=== PATIENT | female | born 1940 | race Caucasian/White ===

== ENCOUNTER 2020-11-13 17:13 | Inpatient (IN) | payer MEDICARE, MEDICAID, SELFPAY ==
--- NOTE | 2020-11-13 17:17 | ECG_ITS ---
Test Reason : STROKE Blood Pressure : / mmHG Vent. Rate : 088 BPM Atrial Rate : 094 BPM P-R Int : 000 ms QRS Dur : 090 ms QT Int : 394 ms P-R-T Axes : 000 081 011 degrees QTc Int : 476 ms Atrial fibrillation Nonspecific ST and T wave abnormality Prolonged QT Abnormal ECG When compared with ECG of 11-AUG-2015 14:17, Criteria for Septal infarct are no longer Present ST no longer depressed in Inferior leads ST no longer depressed in Lateral leads T wave inversion no longer evident in Lateral leads QT has lengthened Referred By: Paul Rabago Electronically Signed By:FIGUEROA DUARTE MD
--- NOTE | 2020-11-13 17:17 | CT_ITS ---
EXAMINATION: CT HEAD WITHOUT CONTRAST (STROKE PROTOCOL) CLINICAL INFORMATION: Stroke protocol. COMPARISON: CT head 05/31/2017 TECHNIQUE: Contiguous axial imaging was performed from the skull base to vertex without intravenous administration of contrast. This CT examination was performed using dose optimization techniques as appropriate, variously including the following: *Automated exposure control *Adjustment of mA and/or kV according to patient size (this includes techniques or standardized protocols for targeted exams where dose is matched to indication/reason for exam; i.e. extremities or head) *Use of iterative reconstruction technique DLP: 685 mGy-cm FINDINGS: There is no intracranial hemorrhage, hematoma, or extra-axial fluid collection. There is no mass effect. There is atrophy with prominence of the ventricles and the sulci and hypodensity of the periventricular white matter due to chronic small vessel ischemic disease. There are vascular calcifications of the internal carotid arteries bilaterally. The stovall-white matter differentiation appears symmetric. There is no acute infarct or mass lesion. The calvarium appears intact. There is no pneumocephalus or orbital emphysema. The visualized sinuses and middle ears and mastoid air cells show no significant mucosal thickening. There are no air-fluid levels. CT/CT head for stroke IMPRESSION: No acute intracranial pathology. This critical result was discussed with Paul Rabago 5:30 PM, 11/13/2020 It was ascertained that the content and urgency of the report was understood at the time of direct communication.
--- NOTE | 2020-11-13 17:26 | ED.NEUROSD ---
HPI - Neuro Symptoms/Deficit General Chief Complaint: Altered Mental Status Stated Complaint: stroke alert Time Seen by Provider: 11/13/20 17:17 Source: patient and EMS Mode of arrival: EMS Limitations: no limitations History of Present Illness HPI Narrative: This is a 80-year-old female presented with right facial droop started at 11:30, patient called 911 on initial 911 evaluation found that she has mild right facial droop otherwise no neurological deficit, patient also takes Coumadin for atrial fibrillation and she had elevated INR. Patient on arrival is awake, oriented, able to move 4 extremities, very mild right pronator drift otherwise no other deficit on the exam, her initial INR was 5.7. 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 Related Data Allergies Allergy/AdvReac Type Severity Reaction Status Date / Time No Known Allergies Allergy Unverified 08/08/20 17:07 [No Known Allergies*] Review of Systems Review of Systems: All other systems are reviewed and are negative Constitutional: Reports as per HPI and Reports no additional constitutional complaints Eyes: Reports as per HPI and Reports no additional eye complaints Reports system reviewed and no additional complaints, except as documented Cardiovascular: Reports as per HPI and Reports no additional cardiovascular complaints Respiratory: Reports as per HPI and Reports no additional respiratory complaints Gastrointestinal: Reports as per HPI and Reports no additional gastrointestinal complaints Genitourinary: Reports no additional female genitourinary complaints Musculoskeletal: Reports no additional musculoskeletal complaints Skin/Breast: Reports system reviewed and no additional complaints, except as docu Psychiatric: Reports no additional psychiatric complaints Endocrine: Reports no additional endocrine complaints Hematologic/Lymphatic: Reports no additional hematologic/lymphatic complaints Allergic/Immunologic: Reports no additional allergic/immunologic complaints Reports system reviewed and no additional complaints, except as documented and Reports Abnormal speech present [facility] Social History Social History Alcohol intake: never Smoking Status: Never smoker Smoked in Last 30 Days: No Use of substances other than those prescribed or required for medical reasons: No Advance Directives: No Advance Directives Information Provided: Yes Physical Exam Vital Signs: Vital Signs: Last Vital Signs Temp 98.1 F 11/13/20 19:33 Pulse 79 11/13/20 19:33 Resp 20 11/13/20 19:33 BP 145/74 H 11/13/20 19:33 Pulse Ox 99 11/13/20 19:33 Body Mass Index 25.1 Vital signs have been reviewed as normal and appeared to be correct. Blood pressure normal. Heart rate normal. Respiration rate normal. Temperature normal. Oxygen saturation normal. Appearance: Alert. Oriented X3. No acute distress. Head: Normal external exam. Normocephalic. Atraumatic. No Souza signs noted. No raccoon eyes noted Eyes: PERRLA. EOMI. Conjunctiva and sclera normal. Eyelids normal. ENT: EAC normal. TM's Normal. Pharynx normal. Uvula midline. Moist mucous membranes. No trismus noted. No drooling noted. No muffled voice noted. Neck: Normal inspection. Neck supple. FROM. No adenopathy. Thyroid Normal. No meningeal signs. No neck mass noted. CVS: Normal heart rate and rhythm. Heart sound normal. No murmurs noted. Pulses normal throughout. Respiratory: No respiratory distress. Painless inspiration. Breath sounds normal. No wheezes/rales/rhonchi noted. Chest nontender. No accessory muscle usage noted or decreased air movement noted. Abdomen: Soft and nontender. Bowel sounds normal in all 4 quadrants. No distention noted. No organomegaly noted. No visible injury noted. Back: No CVA tenderness. Full range of motion noted. Skin: Skin warm and dry. Normal skin color. Normal skin turgor. No rashes/lesions/lacerations noted. Extremities: No lower extremity edema. Extremities exhibit normal range of motion. Extremities nontender. Neuro: Oriented X 3. No motor deficit. No sensory deficit. Reflexes normal. MDM - Neuro Symptoms/Deficit MDM Narrative Medical decision making narrative: Assessment and plan. 80-year-old female presented with 6 hours of symptoms started before coming to the emergency department, right facial droop and right upper extremities weakness (that improved), patient is not candidate for tPA therapy because INR is above 5 (patient is on Coumadin for atrial fibrillation), also patient presented 6 hours after the onset of the symptoms, and the minority of the symptoms. Admit the patient for further observation and further neurological evaluation. Patient also stated that she gained about 30 lb from bilateral lower extremity swelling, chest x-ray, history of ejection fraction of 20%. We will give 1 dose of Lasix for diuresis. Lab Data Result diagrams: 11/13/20 19:31 11/13/20 19:31 Labs: Lab Results 11/13/20 11/13/20 11/13/20 Range/Units 19:20 19:31 19:31 WBC 7.9 (4.8-10.8) X10*3/uL RBC 3.96 L (4.20-5.50) X10*6/uL Hgb 10.7 L (12.0-16.0) g/dl Hct 37.3 (37-47) % MCV 94.2 (80-98) fL MCH 27.0 (27.0-33.0) pg MCHC 28.7 L (31.0-35.0) g/dl RDW 17.9 H (11.0-16.0) % Plt Count 194 (160-400) X10*3/uL MPV 10.9 (9.4-12.3) fL Immature Gran % (Auto) 0.4 (0.0-0.4) % Neut % (Auto) 81.5 H (45-73) % Lymph % (Auto) 8.2 L (20-40) % [place] % (Auto) 7.8 (2-11) % Eos % (Auto) 1.3 (0-4) % Baso % (Auto) 0.8 (0-2) % Lymph # (Auto) 0.7 L (1.2-4.9) X10*3/uL [place] # (Auto) 0.6 (0.1-1.2) X10*3/uL Eos # (Auto) 0.1 (0.0-0.4) X10*3/uL Baso # (Auto) 0.1 (0.0-0.2) X10*3/uL Abs Immat Gran (auto) 0.03 (0.00-0.03) X10*3/uL Absolute Neuts (auto) 6.4 (2.0-8.3) X10*3/uL Absolute Nucleated RBC 0.000 (0.0-0.012) X10*3/uL Nucleated RBC % (auto) 0.0 (0.0-0.2) /100WBC PT 63.2 H (10.8-13.0) SEC INR 5.2 H* (0.9-1.1) APTT 44.0 H (24.1-38.0) SEC POC Glucose 119 H (60-115) mg/dL Imaging Data Chest x-ray: Radiologist's impression: Heart enlarged. Contour suggests pericardial effusion. 2. Bilateral pleural effusions. CT scan - head: Radiologist's impression: No acute intracranial pathology. ECG Data Interpretation: Atrial fibrillation at 88 beats per minutes, normal intervals, two views flattening T-wave and T-wave inversion in V5/V6/lead II,III.a VF. NIH Stroke Scale Internal: Initial- Upon Arrival Level of Consciousness: Alert Level of Consciousness Questions: Answers both questions correctly Level of Consciousness Commands: Performs both tasks correctly Best Gaze: Normal Visual: No visual loss Facial Palsy: Minor paralyis Motor Arm (Right): No drift Motor Arm (Left): No drift Motor Leg (Right): No drift Motor Leg (Left): No drift Limb Ataxia: Absent Sensory: Normal Best Language: No aphasia Dysarthia: Normal Extinction and Inattention: No abnormality Score: 1 Discharge Plan Discharge Clinical Impression: TIA (transient ischemic attack), Congestive heart failure Patient Disposition: Admitted As Inpatient
[2020-11-13 17:27] VITALS: BP 130/84; BP 151/71; PULSE 80; PULSE 85; RESP 15; TEMP 36.6; O2SAT 98; BMI 25.1
--- NOTE | 2020-11-13 17:49 | XR_ITS ---
EXAMINATION: XR CHEST CLINICAL INFORMATION: 80-year-old female patient with transient ischemic attack. COMPARISON: Portable chest on 08/09/2015. (Pulmonary edema with pleural effusions). TECHNIQUE: AP portable erect view of the chest was obtained. The time of examination was 5:55 PM. FINDINGS: The heart is enlarged. The contour of the heart suggests the presence of a pericardial effusion. A left pectoral AICD pacemaker device is in place terminating in the right ventricle. There are bilateral pleural effusions. No overt airspace pulmonary edema is seen. XR/XR chest 1V IMPRESSION: 1. Heart enlarged. Contour suggests pericardial effusion. 2. Bilateral pleural effusions.
[2020-11-13 18:17] VITALS: BP 151/71; PULSE 85; RESP 15; TEMP 36.6; O2SAT 98
[2020-11-13 18:23] VITALS: BP 130/68; PULSE 84; RESP 20; O2SAT 96
--- NOTE | 2020-11-13 19:26 | PC.NURSE ---
REPORT RECEIVED FROM MARIA VICTORIA MICHAEL AT 19:00. ANTHONY MORLEY AT BEDSIDE OBTAINING ORDERED LABS AT THIS TIME. LABS ORDERED 2 HOURS PRIOR TO THIS RN's SHIFT. MD ANKUSH AWARE OF DELAYED DRAWING OF LABS. PATIENT HAS PATENT IV ACCESS IN LEFT AC. BARLEY STEEPER AT BEDSIDE.
[2020-11-13 19:27] LABS: Glucose, Whole Blood 119 mg/dL (60-115)
[2020-11-13 19:33] VITALS: BP 145/74; PULSE 79; RESP 20; TEMP 36.7; O2SAT 99
[2020-11-13 19:38] LABS: Basophils Absolute Auto 0.1 X10*3/uL (0.0-0.2); Basophils Percent Auto 0.8 % (0-2); Eosinophils Absolute Auto 0.1 X10*3/uL (0.0-0.4); Eosinophils Percent Auto 1.3 % (0-4); Hematocrit 37.3 % (37-47); Hemoglobin 10.7 g/dl (12.0-16.0); Imm Gran Abs Auto 0.03 X10*3/uL (0.00-0.03); Imm Gran Pct Auto 0.4 % (0.0-0.4); Lymphocytes Absolute Auto 0.7 X10*3/uL (1.2-4.9); Lymphocytes Percent Auto 8.2 % (20-40); MANUAL DIFF FLAG SCAN; Mean Corpuscular HGB Conc 28.7 g/dl (31.0-35.0); Mean Corpuscular Volume 94.2 fL (80-98); Mean Platelet Volume 10.9 fL (9.4-12.3); Monocytes Absolute Auto 0.6 X10*3/uL (0.1-1.2); Monocytes Percent Auto 7.8 % (2-11); Neutrophils Absolute Auto 6.4 X10*3/uL (2.0-8.3); Neutrophils Percent Auto 81.5 % (45-73); Platelet Count 194 X10*3/uL (160-400); Red Blood Count 3.96 X10*6/uL (4.20-5.50); Red Cell Distribution Width 17.9 % (11.0-16.0); SCAN SMEAR FLAG 1; White Blood Count 7.9 X10*3/uL (4.8-10.8)
[2020-11-13 19:52] LABS: Prothrombin Time 63.2 SEC (10.8-13.0)
[2020-11-13 20:00] LABS: INTERNATIONAL NORM RATIO 5.2 (0.9-1.1)
[2020-11-13 20:02] LABS: Stroke Lab Use COMPLETE
[2020-11-13 20:05] VITALS: BP 140/73; PULSE 81; RESP 16; O2SAT 95
[2020-11-13 20:07] LABS: Anion Gap 16 (12-20); Blood Urea Nitrogen 22 mg/dL (9-16); Calcium 8.2 mg/dL (8.4-10.2); Carbon Dioxide 22 mmol/L (22-29); Chloride 106 mmol/L (96-108); Creatinine Clr Calc Pharmacy 40.1; Estimated Glomerular Filt Rate 50; Glucose Random 109 mg/dL (60-115); Potassium 4.8 mmol/l (3.3-5.1); Sodium 139 mmol/L (135-145)
[2020-11-13 20:13] LABS: SLIDE REVIEW VERIFIED
[2020-11-13 20:16] LABS: B Type Natriuretic Peptide 1651 pg/mL (<100); Troponin-I High Sensitivity 37.6 ng/L (<3.5-17.0)
[2020-11-13] MEDS: Furosemide 40 MG/4 ML VIAL IVPUSH (20:59)
[2020-11-13 22:05] VITALS: BP 136/68; PULSE 83; RESP 18; O2SAT 96
[2020-11-14] VITALS (7 sets, daily range): BP systolic 104–166; BP diastolic 70–81; PULSE 71–95; RESP 17–22; TEMP 36.6–37; O2SAT 93–98
--- NOTE | 2020-11-14 00:04 | PC.NURSE ---
PATIENT VOIDED IN BEDPAN, REPORTED NEEDING TO HAVE BOWEL MOVEMENT BUT WAS UNABLE TO AT THIS TIME. PATIENT IS CALM/COOPERATIVE AT THIS TIME. CALL KELLER WITHIN REACH. WILL CONTINUE TO MONITOR. AWAITING BED ASSIGNMENT.
[2020-11-14 00:55] LABS: COVID-19 Test Negative (Negative)
[2020-11-14 03:35] LABS: Glucose Urine UA NEG (NEG); Leukocyte Esterase Urine NEG (NEG); Nitrite Urine NEG (NEG); PH 5.5 (5.0-8.0); Specific Gravity - Urine 1.015 (1.005-1.025); Urine Blood NEG (NEG); Urine Ketones NEG (NEG); Urine Protein NEG (NEG-TRACE)
[2020-11-14 03:38] LABS: Appearance Urine CLEAR; Color Urine STRAW; UACC Culture Trigger NO
--- NOTE | 2020-11-14 03:39 | PC.NURSE ---
urine specimen collected and sent to lab for analysis. awaiting results.
--- NOTE | 2020-11-14 05:18 | P.HPHOSP_ITS ---
History of Present Illness Date of Service: 11/13/20 Chief Complaint: Volume overload, facial droop This is an 80-year-old female with past medical history of CHF with reduced ejection fraction, AFib, CAD status post stents, renal artery stenosis, who lives initiated living situation with her blanket winder operator who is present at bedside presents to the hospital complaining of worsening facial droop. History is obtained mostly from her caregiver at bedside who is her proxy as patient is confused, she is alert and oriented to self and place but not to time and is not sure what happened that brought him to hospital. According to the blanket winder operator patient was seen at [facility] about 3 and half weeks ago because of right-sided facial droop. 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 Medical records obtained from [facility] show that patient underwent CT of the head, CT angiogram, and was found to have occlusion as above. With no acute stroke. Her blanket winder operator reports that even after discharge she continued to have right- sided facial droop. Her blanket winder operator reports that since discharge patient has been gaining about 30 lb, having lower extremity edema, and becoming more dyspneic on minimal exertion. She also noted that she give her furosemide this morning with very minimal urine production all day which is abnormal for her. Patient also was noted to have a worsening right-sided facial droop around 4:00 p.m. by the blanket winder operator and her daughter and therefore EMS was called. Patient is on 20 mg of Lasix daily and according to the blanket winder operator has been compliant. Patient has not been complaining of any chest pain, has been sleeping in a hospital bed that is almost required to 45? chronically, but has not had any PND. She has not had any fever or chills which the blanket winder operator checks twice day. She has not had any urinary symptoms, no diarrhea or constipation. No nausea or vomiting. No urinary symptoms. On arrival to the ED patient hemodynamically stable with no significant abnormal vitals Labs are significant for, hemoglobin of 10.7, PT of 63, INR 5.2, PTT of 44, sodium of 139, potassium 4.8, high sensitivity troponin of 37.6 Negative UA, EKG showing AFib with nonspecific ST T wave abnormality Chest x-ray shows Pericardial effusion as well as bilateral pleural effusion Past medical history: CAD, CHF, renal artery stenosis, AFib on Coumadin Past surgical history: Cholecystectomy, stent Family history: Heart disease Social history: Comes from home, lives initiated living situation with a blanket winder operator, does not smoke drink alcohol or use illicit drugs Review of Systems Review of Systems: Yes all other systems are reviewed and are negative [facility] Medical History (Updated 11/14/20 @ 05:33 by Myah Hernandez MD) Atrial fibrillation CAD (coronary artery disease) CVA (cerebral vascular accident) Social History Alcohol intake: never Smoking Status: Never smoker Smoked in Last 30 Days: No Use of substances other than those prescribed or required for medical reasons: No Advance Directives: No Advance Directives Information Provided: Yes Meds Allergies Allergy/AdvReac Type Severity Reaction Status Date / Time No Known Allergies Allergy Unverified 08/08/20 17:07 [No Known Allergies*] Home Medications Medication Instructions Recorded Confirmed Type amiodarone 50 mg PO DAILY 11/13/20 11/13/20 History atorvastatin 40 mg PO BEDTIME 11/13/20 11/13/20 History digoxin 62.5 mcg PO TUTHSA@0900 11/13/20 11/13/20 History furosemide 20 mg PO DAILY 11/13/20 11/13/20 History melatonin 3 mg PO BEDTIME 11/13/20 11/13/20 History metoprolol succinate 25 mg PO DAILY 11/13/20 11/13/20 History mirtazapine 7.5 mg PO BEDTIME 11/13/20 11/13/20 History jhzrtmjo-lmu-sfzx-FA-lutein 1 tab PO DAILY 11/13/20 11/13/20 History [Centrum Silver Women] quetiapine 25 mg PO DAILY 11/13/20 11/13/20 History sertraline 50 mg PO DAILY 11/13/20 11/13/20 History trazodone 100 mg PO BEDTIME 11/13/20 11/13/20 History warfarin 1 mg PO MOTUWETHFRSA@1800 11/13/20 11/13/20 History warfarin 2 mg PO HAGER@1800 11/13/20 11/13/20 History Physical Exam Vital Signs and Narrative: Vital Signs: Last Vital Signs Temp 98.1 F 11/13/20 19:33 Pulse 88 11/14/20 02:06 Resp 17 11/14/20 02:06 BP 145/80 H 11/14/20 02:06 Pulse Ox 97 11/14/20 02:06 Body Mass Index 25.1 Const: Other: Cardia anti to self and place but not to time, appears in no distress General: cooperative and no acute distress Eyes: General: appearance normal, both eyes and all related structures Pupils: Equal, round and reactive pupils present Resp: Effort & Inspection: normal respiratory effort and able to speak in complete sentences Auscultation: clear to auscultation bilaterally Cardio: Other: Irregular rhythm, has 3+ pedal edema bilaterally Rate: regular rate GI: Palpation (GI): Soft to palpation Auscultation: normal bowel sounds Skin: General skin exam: no rashes or lesions noted Neuro: Other: Has right facial droop, no other neurological deficits including strength 5/5, no pronator drift, sensation intact Cranial nerves: Yes Equal, round and reactive pupils present Cognition (Neuro): normal cognition Extrem: General: Yes normal to inspection Results Labs CBC and Chem 7: 11/13/20 19:31 11/13/20 19:31 Labs: Laboratory Results - last 24 hr 11/13/20 11/13/20 11/13/20 19:20 19:31 19:31 MCV 94.2 MCH 27.0 MCHC 28.7 L RDW 17.9 H Plt Count 194 MPV 10.9 Immature Gran % (Auto) 0.4 Neut % (Auto) 81.5 H Lymph % (Auto) 8.2 L [place] % (Auto) 7.8 Eos % (Auto) 1.3 Baso % (Auto) 0.8 Lymph # (Auto) 0.7 L [place] # (Auto) 0.6 Eos # (Auto) 0.1 Baso # (Auto) 0.1 Abs Immat Gran (auto) 0.03 Absolute Neuts (auto) 6.4 Absolute Nucleated RBC 0.000 Nucleated RBC % (auto) 0.0 Smear Tech's Comments VERIFIED PT 63.2 H INR 5.2 H* APTT 44.0 H Anion Gap Estim Creat Clear Calc Estimated GFR POC Glucose 119 H Random Glucose Calcium Total Creatine Kinase Troponin I High Sens B-Natriuretic Peptide Urine Color Urine Appearance Urine pH Ur Specific [place] Urine Protein Urine Glucose (UA) Urine Ketones Urine Blood Urine Nitrite Ur Leukocyte Esterase COVID-19 ([facility]ILA) COVID-19 Clin Com 11/13/20 11/13/20 11/14/20 19:31 19:31 00:32 MCV MCH MCHC RDW Plt Count MPV Immature Gran % (Auto) Neut % (Auto) Lymph % (Auto) [place] % (Auto) Eos % (Auto) Baso % (Auto) Lymph # (Auto) [place] # (Auto) Eos # (Auto) Baso # (Auto) Abs Immat Gran (auto) Absolute Neuts (auto) Absolute Nucleated RBC Nucleated RBC % (auto) Smear Tech's Comments PT INR APTT Anion Gap 16 Estim Creat Clear Calc 40.1 Estimated GFR 50 POC Glucose Random Glucose 109 Calcium 8.2 L Total Creatine Kinase 55 Troponin I High Sens 37.6 H B-Natriuretic Peptide 1651 H Urine Color Urine Appearance Urine pH Ur Specific [place] Urine Protein Urine Glucose (UA) Urine Ketones Urine Blood Urine Nitrite Ur Leukocyte Esterase COVID-19 (SHILA) Negative COVID-19 Clin Com See Note 11/14/20 03:28 MCV MCH MCHC RDW Plt Count MPV Immature Gran % (Auto) Neut % (Auto) Lymph % (Auto) [place] % (Auto) Eos % (Auto) Baso % (Auto) Lymph # (Auto) [place] # (Auto) Eos # (Auto) Baso # (Auto) Abs Immat Gran (auto) Absolute Neuts (auto) Absolute Nucleated RBC Nucleated RBC % (auto) Smear Tech's Comments PT INR APTT Anion Gap Estim Creat Clear Calc Estimated GFR POC Glucose Random Glucose Calcium Total Creatine Kinase Troponin I High Sens B-Natriuretic Peptide Urine Color STRAW Urine Appearance CLEAR Urine pH 5.5 Ur Specific [place] 1.015 Urine Protein NEG Urine Glucose (UA) NEG Urine Ketones NEG Urine Blood NEG Urine Nitrite NEG Ur Leukocyte Esterase NEG COVID-19 (SHILA) COVID-19 Clin Com Imaging Radiologist's Impressions: Impressions Head CT 11/13/20 17:17 IMPRESSION: No acute intracranial pathology. This critical result was discussed with Paul Rabago 5:30 PM, 11/13/2020 It was ascertained that the content and urgency of the report was understood at the time of direct communication. Chest X-Ray 11/13/20 17:49 IMPRESSION: 1. Heart enlarged. Contour suggests pericardial effusion. 2. Bilateral pleural effusions. Assessment and Plan (1) CHF exacerbation: Status: Acute (2) CVA (cerebral vascular accident): Status: Acute (3) Atrial fibrillation: Status: Acute (4) CAD (coronary artery disease): Status: Acute (5) Supratherapeutic INR: Status: Acute (6) Pericardial effusion: Status: Acute This is a an 80-year-old female with past medical history of CHF, AFib on Coumadin, recent CVA who presents to the hospital with complaints of worsening facial droop as well as volume overload. # CVA - neurological exam shows a right-sided facial droop that was present 3 weeks ago per her blanket winder operator the worsening of the strip is unclear - CT of the head is negative, CT angiogram done at [facility] 3 weeks ago shows internal carotid artery stenosis of 75% on the left and 55% on the right Plan: - atorvastatin 80 mg, as patient is supratherapeutic will hold off starting aspirin - neurology consult - echocardiogram - neurology consulted will hold off consulting vascular surgery as well as getting an MRI based on the recommendation # CHF exacerbation - has dyspnea, lower extremity edema, elevated BNP - on furosemide 20 mg at home and reports compliance - chest x-ray positive for pleural effusion Plan: - will start on Lasix 40 IV b.i.d. - strict I&O, low-sodium diet, daily weight - echocardiogram - consult cardiology - continue metoprolol # carotid artery stenosis - per CT angiogram done at [facility] records are on file - will hold off consulting vascular surgery, awaiting Neurology evaluation and recommendation - atorvastatin 80 mg daily # supratherapeutic INR - on Coumadin daily for history of AFib - no bleed at this time - will hold off Coumadin - resume was PT INR therapeutic, - PT INR daily # pericardial effusion on chest x-ray - will obtain echocardiogram - cardiology on consult - no hypoxia at this time and no hypotension # AFib - continue amiodarone, digoxin, - hold Coumadin at this time as patient has supratherapeutic INR DVT prophylaxis: Coumadin
--- NOTE | 2020-11-14 05:47 | PC.NURSE ---
NEW IV ACCESS ESTABLISHED IN RIGHT HAND. 22G IV ACCESS INSERTED. PREVIOUS IV ACCESS REMOVED ACCIDENTALLY BY PATIENT. REPEAT TROPONIN LEVEL DRAWN AND SENT TO LAB FOR ANALYSIS. AWAITING RESULTS, AND CONTINUE TO AWAIT ADMISSION BED ASSIGNMENT. PATIENT DENIES COMPLAINTS AT THIS TIME, WILL CONTINUE TO MONITOR.
[2020-11-14 06:35] LABS: Troponin-I High Sensitivity 46.8 ng/L (<3.5-17.0)
--- NOTE | 2020-11-14 08:02 | PC.NURSE ---
Pt offers no complaints at this time. Currently eating breakfast tray in room. Respirations even/unlabored bilaterally. Awaiting bed assignment for admission.
--- NOTE | 2020-11-14 08:12 | CA_ITS ---
Transthoracic Echocardiogram Patient (Last, First, Middle): Karie Messina, Gender: Female Date of : 1940 Age: 80 Procedure Date: 11/14/2020 Procedure Type: Transthoracic Echocardiogram Location: [facility] Height: 165.1 cm Weight: 68.49 kg BSA: 1.76 m2 Heart Rate: bpm BP: 138 / 81 mmHg Rod Welder: PATRICIA Hester MD: Myah Hernandez MD Production Packager: Thomas Evans MD Symptoms: pericardial effusion? CHF exacerbation Study Quality: Fair ECG Rhythm: Atrial Fibrillation Conclusions: - 1. Severe LV systolic dysfunction with restrictive filling pattern 2. Moderate biatrial enlargement 3. Moderately enlarged RV with reduced systolic function 4. Mild aortic stenosis 5. Severely elevated right ventricular systolic pressure and severely elevated right atrial pressures 6. Trivial pericardial effusion Findings Left Ventricle Mildly increased left ventricular cavity size. There is normal left ventricular wall thickness. The left ventricular systolic function is severely decreased. The visually estimated ejection fraction is between 25 30%. There is evidence of regional wall motion abnormalities. Spectral Doppler is indicative of a restrictive filling pattern. Wall Motion Rest Echo Findings The inferoseptal wall, inferior wall, inferolateral wall, and apical septum segment are akinetic. All other scored wall segments showed normal motion. Right Ventricle Moderately increased right ventricular cavity size. There is mildly decreased right ventricular systolic function. There is an ICD wire seen in the right ventricle. Atria The left atrium is moderately dilated. There is no evidence of interatrial shunt. The right atrium is moderately dilated. Aortic Valve There is moderate calcification of the aortic valve. There is moderate thickening of the aortic valve. There is mild aortic valve stenosis. There is no aortic valve regurgitation. Mitral Valve There is mild anterior and posterior mitral leaflet thickening. The anterior mitral leaflet has restricted mobility and the posterior mitral leaflet has restricted mobility. There is mild mitral valve regurgitation. There is no mitral valve stenosis. There is mild mitral annular dilatation. Pulmonic Valve The pulmonic valve was not well visualized. Tricuspid Valve Likely normal tricuspid valve structure and function. There is moderate tricuspid valve regurgitation. The right ventricular systolic pressure is 83 mmHg. Significantly elevated right atrial pressure. Severe pulmonary hypertension is present. Great Vessels All visible segments of the aorta are normal in size. The pulmonary artery was not well visualized. Venous The inferior vena cava is moderately dilated and does not collapse with inspiration. Pericardium/Pleural There is a trivial circumferential pericardial effusion. Prior Study Comparison No previous study in the last 5 years for comparison Measurements 2D Linear Measurements IVSd: 1.10 0.6-0.9/0.6-1.0 cm LVIDd: 5.01 3.9-5.3/4.2-5.9 cm LVIDd Index: 2.85 2.4-3.2/2.2-3.1 cm/m2 LVIDs: 4.27 2.0-3.6 cm LVPWd: 1.01 0.7-1.1 cm Ao Root: 3.30 2.1-3.5 cm LA Diam: 4.10 2.7-3.8/3.0-4.0 cm LAIDs Index: 2.33 1.5-2.3 cm/m2 LV Mass: 244.60 67-162/88-224 g LV Mass Index: 138.98 43-95/49-115 g/m2 LVOT Diam: 1.90 3.0+(-)1.3 cm 2D Systolic Function EF 4C: 21.00 >55% EF 2C: 37.50 >55% Aortic Valve AoV Pk Sean: 1.86 AoV Mn Sean: 1.39 AoV VTI: 0.37 AoV Pk Grad: 14.00 Aov Mn Grad: 9.00 KIRAN Cont.VTI: 1.47 LVOT LVOT Pk Sean: 0.89 LVOT Mn Sean: 0.62 LVOT VTI: 0.19 LVOT Pk Grad: 3.00 LVOT Mn Grad: 2.00 LVOT Diam: 1.90 LVOT Area: 2.84 Tricuspid Valve TR Pk Sean: 4.12 TR Pk Grad: 68.00 RA Press: 15.00 RVSP: 83.00 Great Vessels Aorta Ao Root-2D: 3.30 2.0-3.7 cm Ao Asc: 3.00 2.1-3.4 cm Ao Arch: 3.10 Updated in Other Vendor System with Status of Final Thomas Evans MD electronically signed on 11/14/2020 2:52:42 PM with status of Final
[2020-11-14] MEDS: Atorvastatin Calcium 80 MG TABLET PO ×2 (09:06→21:12)
[2020-11-14 09:17] LABS: Basophils Absolute Auto 0.1 X10*3/uL (0.0-0.2); Basophils Percent Auto 0.9 % (0-2); Eosinophils Percent Auto 0.1 % (0-4); Hemoglobin 11.2 g/dl (12.0-16.0); Imm Gran Abs Auto 0.02 X10*3/uL (0.00-0.03); Imm Gran Pct Auto 0.3 % (0.0-0.4); Lymphocytes Absolute Auto 0.5 X10*3/uL (1.2-4.9); Lymphocytes Percent Auto 5.8 % (20-40); MANUAL DIFF FLAG SCAN; Mean Corpuscular HGB Conc 30.3 g/dl (31.0-35.0); Mean Corpuscular Volume 89.2 fL (80-98); Mean Platelet Volume 11.1 fL (9.4-12.3); Monocytes Absolute Auto 0.6 X10*3/uL (0.1-1.2); Monocytes Percent Auto 7.5 % (2-11); Neutrophils Absolute Auto 6.8 X10*3/uL (2.0-8.3); Neutrophils Percent Auto 85.4 % (45-73); Platelet Count 236 X10*3/uL (160-400); Red Blood Count 4.15 X10*6/uL (4.20-5.50); Red Cell Distribution Width 17.8 % (11.0-16.0); SCAN SMEAR FLAG 1
[2020-11-14 09:34] LABS: SLIDE REVIEW VERIFIED
[2020-11-14 09:39] LABS: Anion Gap 17 (12-20); Blood Urea Nitrogen 24 mg/dL (9-16); Calcium 8.4 mg/dL (8.4-10.2); Carbon Dioxide 24 mmol/L (22-29); Chloride 103 mmol/L (96-108); Creatinine Clr Calc Pharmacy 36.3; Estimated Glomerular Filt Rate 45; Glucose Random 139 mg/dL (60-115); Potassium 4.5 mmol/l (3.3-5.1); Sodium 139 mmol/L (135-145)
--- NOTE | 2020-11-14 11:48 | MHC.STROKE ---
11/13/20 EMS PRE-NOTIFICATION AT 1708, ARRIVED [address] STROKE PROTOCOL ACTIVATED. NIHSS = 1 RIGHT DROOP ONSET 1130 BUT HISTORY OF DROOP. ON COUMADIN FOR AFIB INR 5.2 EXCLUDED FROM TPA. ALSO UNKNOWN ONSET AND NIHSS = 1. PASSES SWALLOW SCREEN PRIOR TO ANY PO. I MET WITH HER TODAY AND STROKE EDUCATION PROVIDED AND BOOKLET GIVEN. RISK FACTORS REVIEWED. DISCUSSED WITH DR NARAYANAN, HE WILL ORDER A LIPID PANEL AND REHAB PT. I WILL CONTINUE TO FOLLOW.
[2020-11-14] MEDS: 0.9 % Sodium Chloride Flush 3 ML SYRINGE IVFLUSH ×3 (11:51→21:13)
[2020-11-14] MEDS: Digoxin 0.125 MG TABLET 0.0625 MG PO (11:51)
[2020-11-14] MEDS: Sertraline HCL 50 MG TABLET PO (11:52)
[2020-11-14] MEDS: Metoprolol Succinate ER 25 MG TAB.ER.24H PO (11:52)
[2020-11-14] MEDS: Furosemide 40 MG/4 ML VIAL IVPUSH (11:52)
[2020-11-14] MEDS: QUEtiapine Fumarate 25 MG TABLET PO (11:52)
[2020-11-14] MEDS: traZODone HCL 100 MG TABLET PO (21:12)
[2020-11-14] MEDS: Melatonin 3 MG TABLET PO (21:12)
[2020-11-14] MEDS: Mirtazapine 15 MG TABLET 7.5 MG PO (21:13)
[2020-11-15] VITALS (7 sets, daily range): BP systolic 123–162; BP diastolic 62–76; PULSE 10–93; RESP 18–20; TEMP 36.4–36.7; O2SAT 95–98; BMI 25.1; BMI 24.7
[2020-11-15 06:52] LABS: Hematocrit 36.2 % (37-47); Hemoglobin 11.3 g/dl (12.0-16.0); Mean Corpuscular HGB Conc 31.2 g/dl (31.0-35.0); Mean Corpuscular Hemoglobin 27.6 pg (27.0-33.0); Mean Corpuscular Volume 88.5 fL (80-98); Mean Platelet Volume 11.7 fL (9.4-12.3); Platelet Count 242 X10*3/uL (160-400); Red Blood Count 4.09 X10*6/uL (4.20-5.50); Red Cell Distribution Width 17.7 % (11.0-16.0); White Blood Count 5.9 X10*3/uL (4.8-10.8)
[2020-11-15 06:59] LABS: INTERNATIONAL NORM RATIO 3.2 (0.9-1.1); Prothrombin Time 38.7 SEC (10.8-13.0)
[2020-11-15 07:04] LABS: Anion Gap 17 (12-20); Blood Urea Nitrogen 24 mg/dL (9-16); Calcium 8.4 mg/dL (8.4-10.2); Carbon Dioxide 24 mmol/L (22-29); Chloride 103 mmol/L (96-108); Creatinine Clr Calc Pharmacy 38.3; Estimated Glomerular Filt Rate 48; Glucose Random 112 mg/dL (60-115); Potassium 3.8 mmol/l (3.3-5.1); Sodium 140 mmol/L (135-145)
[2020-11-15 07:21] LABS: Cholesterol 88 mg/dL; HDL Cholesterol 35 mg/dL; LDL Cholesterol Calculated 43 mg/dl; Triglycerides 54 mg/dL
--- NOTE | 2020-11-15 09:07 | MHC.CM.PN ---
Addendum entered by Corie Martinez 11/15/20 09:15: Patient stated [facility]. She is active with [facility]. Referral to [facility]. a referral was placed with [facility]. CM will follow. Original Note: IMM 11/15/2020 FEMALE 80 DX HF EXACERBATION TIA. sHE LIVES WITH FRIEND LISA. Lisa is HCP on file. She provides assist to {t prn. Pt uses a walker to ambulate. assist with adls. [facility] in place. DP home resumption of [facility]. Lisa will provide transportation. CM will follow.
[2020-11-15] MEDS: Amiodarone HCL 200 MG TABLET 50 MG PO (09:42)
[2020-11-15] MEDS: QUEtiapine Fumarate 25 MG TABLET PO (09:42)
[2020-11-15] MEDS: Sertraline HCL 50 MG TABLET PO (09:42)
[2020-11-15] MEDS: 0.9 % Sodium Chloride Flush 3 ML SYRINGE IVFLUSH ×3 (09:42→21:55)
[2020-11-15] MEDS: Metoprolol Succinate ER 25 MG TAB.ER.24H PO (09:42)
[2020-11-15] MEDS: Furosemide 40 MG/4 ML VIAL IVPUSH ×2 (09:43→17:37)
--- NOTE | 2020-11-15 09:43 | P.CNNE_ITS ---
History of Present Illness Data of Consult Service Date: 11/15/20 Primary Care Provider: Garry Rinaldi MD 80 years old woman who probably has underlying history of dementia I was asked to see for possibility of TIA. What she told me was different from what was documented in the emergency room. When I asked her why she was here she said that she was having chest pain or shortness of breath but also right-sided facial weakness. According to documentation she has been in [facility] recently with similar complaints and had stroke workup that revealed moderate left internal carotid artery stenosis. There was no indication of any recent seizure or focal arm or leg weakness. Review of Systems Review of Systems: She complained of chest discomfort before coming to hospital and there was also documentation of shortness of breath and leg edema. [facility] Past Medical History Medical History (Updated 11/14/20 @ 05:33 by Myah Hernandez MD) Atrial fibrillation CAD (coronary artery disease) CVA (cerebral vascular accident) Social History Social History Household Members: Caregiver Housing: House Alcohol intake: never Smoking Status: Never smoker Smoked in Last 30 Days: No Use of substances other than those prescribed or required for medical reasons: No Currently Displaying Signs/Symptoms of Drug Intoxication Withdrawal: No Have you been hit, kicked, punched, or otherwise hurt by someone within the past year? If so, by whom?: No Do you feel safe in your current relationship?: No Current Relationship Is there a partner from a previous relationship who is making you feel unsafe now?: No Are you made to feel afraid or neglected: No Advance Directives: No Advance Directives Information Provided: Yes Do you have thoughts of harming others: None Do you have a plan to hurt others: No Plan Recently lost weight without trying: No service: No Current occupational status: retired Meds Allergies Allergy/AdvReac Type Severity Reaction Status Date / Time No Known Allergies Allergy Unverified 08/08/20 17:07 [No Known Allergies*] Home Medications Medication Instructions Recorded Confirmed Type amiodarone 50 mg PO DAILY 11/13/20 11/13/20 History atorvastatin 40 mg PO BEDTIME 11/13/20 11/13/20 History digoxin 62.5 mcg PO TUTHSA@0900 11/13/20 11/13/20 History furosemide 20 mg PO DAILY 11/13/20 11/13/20 History melatonin 3 mg PO BEDTIME 11/13/20 11/13/20 History metoprolol succinate 25 mg PO DAILY 11/13/20 11/13/20 History mirtazapine 7.5 mg PO BEDTIME 11/13/20 11/13/20 History kzrzzosc-hhd-bshm-FA-lutein 1 tab PO DAILY 11/13/20 11/13/20 History [Centrum Silver Women] quetiapine 25 mg PO DAILY 11/13/20 11/13/20 History sertraline 50 mg PO DAILY 11/13/20 11/13/20 History trazodone 100 mg PO BEDTIME 11/13/20 11/13/20 History warfarin 1 mg PO MOTUWETHFRSA@1800 11/13/20 11/13/20 History warfarin 2 mg PO HAGER@1800 11/13/20 11/13/20 History Physical Exam Vital Signs: Vital Signs: Last Vital Signs Temp 97.6 F 11/15/20 08:00 Pulse 87 11/15/20 08:00 Resp 18 11/15/20 08:00 BP 144/62 H 11/15/20 08:00 Pulse Ox 96 11/15/20 08:00 Body Mass Index 25.1 She was alert and awake with normal spontaneity of speech fluency comprehension and affect. She could not tell me precisely why she was admitted and her history was different from what was documented before. Pupils were equal reactive to light. Extraocular muscles are intact. Face seems symmetrical. There was no obvious arm or leg weakness. Deep tendon reflexes were trace to absent with flexor plantars. Results Labs CBC & Chem 7: 11/15/20 05:43 11/15/20 05:43 Labs: Short CBC 11/15/20 Range/Units 05:43 WBC 5.9 (4.8-10.8) X10*3/uL Hgb 11.3 L (12.0-16.0) g/dl Hct 36.2 L (37-47) % Plt Count 242 (160-400) X10*3/uL BMP 11/15/20 05:43 Sodium 140 Potassium 3.8 Chloride 103 Carbon Dioxide 24 BUN 24 H Creatinine 1.10 Calcium 8.[address] revealed moderately severe diffuse cerebral atrophy. Assessment and Plan (1) TIA (transient ischemic attack): Status: Acute 80 years old woman who probably has underlying history of dementia and congestive heart failure who was brought to hospital with leg edema, shortness of breath, and facial weakness. Apparently she has been admitted to [facility] recently with similar complaints and had workup done. At this time my recommendation is to treat her cardiac issues, continue anti-platelet agent, and address carotid stenosis issue was a notation. This amount of carotid stenosis and this type of patient is treated medically.
--- NOTE | 2020-11-15 12:42 | P.CONCA_ITS ---
History of Present Illness History of Present Illness Date of Service: 11/15/20 Consult reason: congestive heart failure Chief complaint: CHF exacerbation , Tia Narrative: Thank you for inviting us in consult on Karie in cardiology consultation for atrial fibrillation, cardiomyopathy and congestive heart failure. She is a limited historian. History was mostly obtained from the chart. On asking the patient why she is here she says she has some chest discomfort and question shortness of breath. As per the chart she presented to the hospital brought in by her guest relations agent home she lives with because of increasing facial droop. She is to confused. Recently at [facility] with right-sided facial droop undergoing CT which showed left-sided 75% occlusion of the internal coronary artery and 55% occlusion the right internal carotid artery. She was managed medically. She has underlying atrial fibrillation on chronic anticoagulation. She presents here with worsening facial droop. No other history obtainable from the patient. Patient was noted to be in bilateral pleural effusion and possible pericardial effusion. She underwent echocardiogram as to which shows severe LV systolic dysfunction with restrictive filling with minimal pericardial effusion. Intake and output chart is inaccurate. IV b.i.d. which was switched to 46 mg daily this morning. She has chronic atrial fibrillation as per the chart. She denies any palpitations. Currently she says she feels well. Review of Systems Review of Systems: Yes Unobtainable due to mental status Neurologic: Reports confusion Psychiatric: Psychiatric: Reports confusion [facility] Past Medical History Medical History Atrial fibrillation CAD (coronary artery disease) CVA (cerebral vascular accident) Social History Social History Household Members: Caregiver Housing: House Alcohol intake: never Smoking Status: Never smoker Smoked in Last 30 Days: No Use of substances other than those prescribed or required for medical reasons: No Currently Displaying Signs/Symptoms of Drug Intoxication Withdrawal: No Have you been hit, kicked, punched, or otherwise hurt by someone within the past year? If so, by whom?: No Do you feel safe in your current relationship?: No Current Relationship Is there a partner from a previous relationship who is making you feel unsafe now?: No Are you made to feel afraid or neglected: No Advance Directives: No Advance Directives Information Provided: Yes Do you have thoughts of harming others: None Do you have a plan to hurt others: No Plan Recently lost weight without trying: No service: No Current occupational status: retired Meds Allergies Allergy/AdvReac Type Severity Reaction Status Date / Time No Known Allergies Allergy Unverified 08/08/20 17:07 [No Known Allergies*] Home Medications Medication Instructions Recorded Confirmed Type amiodarone 50 mg PO DAILY 11/13/20 11/13/20 History atorvastatin 40 mg PO BEDTIME 11/13/20 11/13/20 History digoxin 62.5 mcg PO TUTHSA@0900 11/13/20 11/13/20 History furosemide 20 mg PO DAILY 11/13/20 11/13/20 History melatonin 3 mg PO BEDTIME 11/13/20 11/13/20 History metoprolol succinate 25 mg PO DAILY 11/13/20 11/13/20 History mirtazapine 7.5 mg PO BEDTIME 11/13/20 11/13/20 History wtbonwlv-xbe-zjzc-FA-lutein 1 tab PO DAILY 11/13/20 11/13/20 History [Centrum Silver Women] quetiapine 25 mg PO DAILY 11/13/20 11/13/20 History sertraline 50 mg PO DAILY 11/13/20 11/13/20 History trazodone 100 mg PO BEDTIME 11/13/20 11/13/20 History warfarin 1 mg PO MOTUWETHFRSA@1800 11/13/20 11/13/20 History warfarin 2 mg PO HAGER@1800 11/13/20 11/13/20 History Physical Exam Vital Signs: Vital Signs: Last Vital Signs Temp 97.5 F 11/15/20 12:00 Pulse 81 11/15/20 12:00 Resp 20 11/15/20 12:00 BP 142/68 H 11/15/20 12:00 Pulse Ox 97 11/15/20 12:00 Body Mass Index 24.7 Const: General: comfortable, no acute distress, alert, awake and confusion Nutritional Appearance: other (Frail) Orientation/consciousness: confusion Limitations: other limitations (Currently bed-bound) HENMT: Head: Yes normocephalic and Yes atraumatic Eyes: General: appearance normal, both eyes and all related structures Neck: Neck: Yes trachea midline, Yes supple and Yes JVD Chest: Chest palpation & inspection: normal inspection of the chest Resp: Effort & Inspection: decreased respiratory effort Auscultation: no crackles, no rales and breath sounds absent (Bases) bilateral Cardio: Jugular venous distension: JVD Palpation: abnormal PMI displaced PMI Rhythm: abnormal rhythm irregularly irregular Heart sounds: S1 normal heart sound present, S2 normal heart sound present and Murmur heart sound present systolic GI: Auscultation: normal bowel sounds Skin: General skin exam: no rashes or lesions noted and ecchymosis Neuro: General: confusion Extrem: General: No clubbing, No cyanosis and Yes edema Psych: Appearance: other (Difficult to obtain) Results Labs and Meds Result diagrams: 11/15/20 05:43 11/15/20 05:43 Lab results: Laboratory Results - last 24 hr 11/15/20 11/15/20 11/15/20 05:43 05:43 05:43 WBC 5.9 RBC 4.09 L Hgb 11.3 L Hct 36.2 L MCV 88.5 MCH 27.6 MCHC 31.2 RDW 17.7 H Plt Count 242 MPV 11.7 Absolute Nucleated RBC 0.000 Nucleated RBC % (auto) 0.0 PT 38.7 H D INR 3.2 H Sodium Potassium Chloride Carbon Dioxide Anion Gap BUN Creatinine Estim Creat Clear Calc Estimated GFR Random Glucose Calcium Triglycerides 54 Cholesterol 88 LDL Cholesterol, Calc 43 HDL Cholesterol 35 11/15/20 05:43 WBC RBC Hgb Hct MCV MCH MCHC RDW Plt Count MPV Absolute Nucleated RBC Nucleated RBC % (auto) PT INR Sodium 140 Potassium 3.8 Chloride 103 Carbon Dioxide 24 Anion Gap 17 BUN 24 H Creatinine 1.10 Estim Creat Clear Calc 38.3 Estimated GFR 48 Random Glucose 112 Calcium 8.4 Triglycerides Cholesterol LDL Cholesterol, Calc HDL Cholesterol Assessment and Plan (1) CHF exacerbation: Status: Acute CHF exacerbation with evidence of fluid overload on clinical exam mostly right-sided heart failure. Echocardiogram showing biventricular failure with LVEF of 25-30% with large wall motion abnormality suggestive underlying ischemic cardiomyopathy. She also has advanced diastolic dysfunction. Also has significantly elevated right ventricular systolic pressure and significantly elevated right atrial pressures. Clinically does not appear to be too uncomfortable at this point time but appears to be under diuresis. Continue IV diuresis with Lasix. Much better intake and output chart needs to be monitored and maintained. Her heart failure medications are not optimal. There is no clear indication of amiodarone and digoxin therapy at this point time. Would maximize her neurohormonal modulation with metoprolol and add RAAS antagonist such as valsartan. Follow BMP and BNP. Continue to follow blood pressure regularly. The guest relations agent needs to be educated regarding her heart failure management to avoid repeated hospitalizations. (2) Atrial fibrillation: Status: Acute Atrial fibrillation, currently rate control. However amiodarone digoxin on not indicated for rate control. Would maximize metoprolol therapy and if only remains difficult to control will add other agents for rate control. Continue to maximize metoprolol therapy for rate control. Continue warfarin therapy with target INR between 2 and 3. She had a neurologic event while on war farin therapy and has underlying carotid obstructive disease, addition of aspirin low-dose is indicated with increased bleeding risk. Will follow with the patient.
--- NOTE | 2020-11-15 13:24 | P.PNIM_ITS ---
Subjective Subjective Date of Service: 11/15/20 Interval History: the patient was seen and evaluated this morning Laying in bed, feels comfortable, still have lower limbs edema Denies any fever, chills but reports shortness of breath and edema No reported other overnight events. Systemic review: No fever, chills or weakness No chest pain, palpitation Dyspnea with exertion, no coughing No abdominal pain, nausea or vomiting No urinary symptoms No any rash or wounds Physical Exam Vital Signs: Vital Signs: Last Vital Signs Temp 97.5 F 11/15/20 12:00 Pulse 81 11/15/20 12:00 Resp 20 11/15/20 12:00 BP 142/68 H 11/15/20 12:00 Pulse Ox 97 11/15/20 12:00 Body Mass Index 24.7 Constitutional : Alert, oriented, not in distress Neck : Normal inspection, Supple Cardiovascular : RRR, S1 S2, +1 bilateral lower extremity edema Respiratory : Decreased bilateral air entry, no crackles, wheezes or rhonchi Gastrointestinal: soft, lax, Normal bowel sounds, Non tender Skin : Warm/Dry, No rash Neurological : Alert & oriented x2, No focal deficit Objective Data Current Medications Generic Name Dose Route Start Last Admin Trade Name Freq PRN Reason Stop Dose Admin Acetaminophen 650 mg 11/14/20 11:18 Acetaminophen 325 Mg Tablet PO Q6H PRN Pain, Mild (Pain Scale 1-3) Aspirin 81 mg 11/16/20 09:00 Aspirin Enteric Coated 81 Mg Tablet.Dr PO DAILY WILMA Atorvastatin Calcium 80 mg 11/14/20 21:00 11/14/20 21:12 Atorvastatin Calcium 80 Mg Tablet PO 80 mg BEDTIME WILMA Administration Docusate Sodium 100 mg 11/14/20 11:18 Docusate Sodium 100 Mg Capsule PO DAILY PRN Constipation Furosemide 40 mg 11/15/20 09:00 11/15/20 09:43 Furosemide 40 Mg/4 Ml Vial IVPUSH 40 mg DAILY WILMA Administration Protocol Melatonin 3 mg 11/14/20 21:00 11/14/20 21:12 Melatonin 3 Mg Tablet PO 3 mg BEDTIME WILMA Administration Metoprolol Succinate 25 mg 11/14/20 11:18 11/15/20 09:42 Metoprolol Succinate Er 25 Mg Tab.Er.24h PO 25 mg DAILY WILMA Administration Protocol Mirtazapine 7.5 mg 11/14/20 21:00 11/14/20 21:13 Mirtazapine 15 Mg Tablet PO 7.5 mg BEDTIME WILMA Administration Multivitamins/Minerals 1 tab 11/14/20 11:18 11/15/20 09:42 Multivitamin With Minerals Tablet PO 1 tab DAILY WILMA Administration Ondansetron HCl 4 mg 11/14/20 11:18 Ondansetron Hcl 4 Mg/2 Ml Vial IVPUSH Q8H PRN Nausea and Vomiting Pharmacy Consult 1 each 11/13/20 20:04 Consult Rx Perform Med Rec MISCELLANE ONCE PRN Consult order Quetiapine Fumarate 25 mg 11/14/20 11:18 11/15/20 09:42 Quetiapine Fumarate 25 Mg Tablet PO 25 mg DAILY WILMA Administration Sertraline HCl 50 mg 11/14/20 11:18 11/15/20 09:42 Sertraline Hcl 50 Mg Tablet PO 50 mg DAILY WILMA Administration Sodium Chloride 3 ml 11/14/20 11:18 11/15/20 09:42 0.9 % Sodium Chloride Flush 3 Ml Syringe IVFLUSH 3 ml QSHIFT WILMA Administration Trazodone HCl 100 mg 11/14/20 21:00 11/14/20 21:12 Trazodone Hcl 100 Mg Tablet PO 100 mg BEDTIME WILMA Administration Valsartan 40 mg 11/15/20 14:00 Valsartan 40 Mg Tablet PO DAILY WILMA Protocol Labs CBC & Chem 7: 11/15/20 05:43 11/15/20 05:43 Assessment and Plan (1) CHF exacerbation: Status: Acute (2) CVA (cerebral vascular accident): Status: Acute (3) Atrial fibrillation: Status: Acute (4) CAD (coronary artery disease): Status: Acute (5) Supratherapeutic INR: Status: Acute (6) Pericardial effusion: Status: Acute Assessment and Plan: This is a an 80-year-old female with past medical history of CHF, AFib on Coumadin, recent CVA who presents to the hospital with complaints of worsening facial droop as well as volume overload. Facial droop Stable to mildly worsened CT of the head is negative CT angiogram done at [facility] 3 weeks ago shows internal carotid artery stenosis of 75% Continue atorvastatin 80 mg Start baby aspirin Neurology input appreciated, medical management only Acute systolic CHF exacerbation Echo showing severe left ventricular dysfunction Continue with IV Lasix Strict intake and output Increase metoprolol to 50 mg daily Start valsartan 20 mg daily Discontinue amiodarone and digoxin Start baby aspirin Cardiology input appreciated, as above carotid artery stenosis Continue statin and an aspirin Medical management only per Neurology supratherapeutic INR Remains elevated at 3.2 continue to hold warfarin Daily INR pericardial effusion on chest x-ray Reported to be minimal on echo Cardiology following, for diuresis AFib Discontinue amiodarone, digoxin, hold warfarin for supratherapeutic INR DVT prophylaxis Coumadin
--- NOTE | 2020-11-15 14:49 | PC.NURSE ---
Pt given scheduled Lasix this AM. Voided only 150ml for 7-3 shift. This RN is unaware of pt being incontinent. She does not feel the urge to go and does not want to walk to the bathroom to attempt to urinate. Pt bladder scanned for 271ml. Dr. Cruz made aware. to look into it. No new orders at this time.
[2020-11-15] MEDS: Mirtazapine 15 MG TABLET 7.5 MG PO (21:44)
[2020-11-15] MEDS: Melatonin 3 MG TABLET PO (21:45)
[2020-11-15] MEDS: traZODone HCL 100 MG TABLET PO (21:45)
[2020-11-15] MEDS: Atorvastatin Calcium 80 MG TABLET PO (21:45)
[2020-11-16] VITALS (9 sets, daily range): BP systolic 102–168; BP diastolic 63–108; PULSE 65–87; RESP 16–18; TEMP 36–36.7; O2SAT 94–96; BMI 24.8
[2020-11-16 06:05] LABS: Hematocrit 36.2 % (37-47); Hemoglobin 11.1 g/dl (12.0-16.0); Mean Corpuscular HGB Conc 30.7 g/dl (31.0-35.0); Mean Corpuscular Hemoglobin 27.1 pg (27.0-33.0); Mean Corpuscular Volume 88.3 fL (80-98); Mean Platelet Volume 11.6 fL (9.4-12.3); Platelet Count 217 X10*3/uL (160-400); Red Cell Distribution Width 17.7 % (11.0-16.0); White Blood Count 6.3 X10*3/uL (4.8-10.8)
[2020-11-16 06:33] LABS: Anion Gap 16 (12-20); Blood Urea Nitrogen 21 mg/dL (9-16); Calcium 8.4 mg/dL (8.4-10.2); Carbon Dioxide 24 mmol/L (22-29); Chloride 105 mmol/L (96-108); Creatinine Clr Calc Pharmacy 37.5; Estimated Glomerular Filt Rate 51; Glucose Random 116 mg/dL (60-115); Potassium 3.8 mmol/l (3.3-5.1); Sodium 141 mmol/L (135-145)
[2020-11-16 06:35] LABS: B Type Natriuretic Peptide 1561 pg/mL (<100)
[2020-11-16] MEDS: Furosemide 40 MG/4 ML VIAL IVPUSH ×2 (08:11→17:27)
[2020-11-16] MEDS: Valsartan 40 MG TABLET 20 MG PO (08:12)
[2020-11-16] MEDS: QUEtiapine Fumarate 25 MG TABLET PO (08:12)
[2020-11-16] MEDS: Aspirin Enteric Coated 81 MG TABLET.DR PO (08:12)
[2020-11-16] MEDS: 0.9 % Sodium Chloride Flush 3 ML SYRINGE IVFLUSH ×3 (08:13→20:41)
[2020-11-16] MEDS: Metoprolol Succinate ER 50 MG TAB.ER.24H PO (08:13)
[2020-11-16] MEDS: Sertraline HCL 50 MG TABLET PO (08:13)
--- NOTE | 2020-11-16 12:11 | PM.PNCARD ---
Subjective Subjective Date of Service: 11/16/20 Principal diagnosis: CHF, atrial fibrillation Interval history: Patient does not present with much symptoms. Says she is breathing okay. Remains in AFib. Intake and output chart a poorly maintained. Review of Systems Review of Systems Yes Unobtainable due to mental status Reports confusion Psychiatric: Reports confusion Physical Exam Vital Signs: Last Vital Signs Temp 97.5 F 11/16/20 11:28 Pulse 77 11/16/20 11:28 Resp 18 11/16/20 11:28 BP 113/66 11/16/20 11:28 Pulse Ox 95 11/16/20 11:28 Body Mass Index 24.8 Const General: no acute distress, alert, awake and confusion Orientation/consciousness: confusion HENMT Head: Yes normocephalic and Yes atraumatic Neck Neck: Yes trachea midline, Yes supple and Yes JVD Chest Chest palpation & inspection: normal inspection of the chest Resp Effort & Inspection: decreased respiratory effort Auscultation: no crackles, no rales and breath sounds absent Cardio Rhythm: abnormal rhythm irregularly irregular Heart sounds: S1 normal heart sound present and S2 normal heart sound present GI Auscultation: normal bowel sounds Neuro General: confusion Extrem General: Yes edema Results Labs and Meds Result diagrams: 11/16/20 05:08 11/16/20 05:08 Lab results: Laboratory Results - last 24 hr 11/16/20 11/16/20 11/16/20 05:08 05:08 05:08 WBC 6.3 RBC 4.10 L Hgb 11.1 L Hct 36.2 L MCV 88.3 MCH 27.1 MCHC 30.7 L RDW 17.7 H Plt Count 217 MPV 11.6 Absolute Nucleated RBC 0.000 Nucleated RBC % (auto) 0.0 Sodium 141 Potassium 3.8 Chloride 105 Carbon Dioxide 24 Anion Gap 16 BUN 21 H Creatinine 1.04 Estim Creat Clear Calc 37.5 Estimated GFR 51 Random Glucose 116 H Calcium 8.4 B-Natriuretic Peptide 1561 H Progress Note: A&P Assessment and plan (1) CHF exacerbation: Status: Acute Assessment and Plan: CHF gradually improving. Intake and output chart well maintained. Continue IV diuresis with Lasix. Strict intake and output chart needs to be monitored. Continue to trend BMP and BNP. Continue to maximize neurohormonal modulation with metoprolol as well as valsartan. Blood pressure is elevated and can increase valsartan therapy. Follow BMP. Overall prognosis is guarded and limited given her advanced age, dementia and severe LV systolic dysfunction and as well as diastolic dysfunction and significant pulmonary hypertension. (2) Atrial fibrillation: Status: Acute Assessment and Plan: Atrial fibrillation, better rate control. Continue current rate control strategy with metoprolol. Agree with discontinuation of digoxin and amiodarone. Continue maximize metoprolol as required. Continue warfarin therapy with target INR between 2 and 3. Will sign of the case. Thank you allowing us to partake in her care Fall Risk Details Current Medications: Current Medications Generic Name Dose Route Start Last Admin Trade Name Freq PRN Reason Stop Dose Admin Acetaminophen 650 mg 11/14/20 11:18 Acetaminophen 325 Mg Tablet PO Q6H PRN Pain, Mild (Pain Scale 1-3) Aspirin 81 mg 11/16/20 09:00 11/16/20 08:12 Aspirin Enteric Coated 81 Mg Tablet.Dr PO 81 mg DAILY WILMA Administration Atorvastatin Calcium 80 mg 11/14/20 21:00 11/15/20 21:45 Atorvastatin Calcium 80 Mg Tablet PO 80 mg BEDTIME WILMA Administration Docusate Sodium 100 mg 11/14/20 11:18 Docusate Sodium 100 Mg Capsule PO DAILY PRN Constipation Furosemide 40 mg 11/15/20 18:00 11/16/20 08:11 Furosemide 40 Mg/4 Ml Vial IVPUSH 40 mg BID@0900,1800 WILMA Administration Protocol Melatonin 3 mg 11/14/20 21:00 11/15/20 21:45 Melatonin 3 Mg Tablet PO 3 mg BEDTIME WILMA Administration Metoprolol Succinate 50 mg 11/16/20 09:00 11/16/20 08:13 Metoprolol Succinate Er 50 Mg Tab.Er.24h PO 50 mg DAILY WILMA Administration Protocol Mirtazapine 7.5 mg 11/14/20 21:00 11/15/20 21:44 Mirtazapine 15 Mg Tablet PO 7.5 mg BEDTIME WILMA Administration Multivitamins/Minerals 1 tab 11/14/20 11:18 11/16/20 08:13 Multivitamin With Minerals Tablet PO 1 tab DAILY WILMA Administration Ondansetron HCl 4 mg 11/14/20 11:18 Ondansetron Hcl 4 Mg/2 Ml Vial IVPUSH Q8H PRN Nausea and Vomiting Pharmacy Consult 1 each 11/13/20 20:04 Consult Rx Perform Med Rec MISCELLANE ONCE PRN Consult order Quetiapine Fumarate 25 mg 11/14/20 11:18 11/16/20 08:12 Quetiapine Fumarate 25 Mg Tablet PO 25 mg DAILY WILMA Administration Sertraline HCl 50 mg 11/14/20 11:18 11/16/20 08:13 Sertraline Hcl 50 Mg Tablet PO 50 mg DAILY WILMA Administration Sodium Chloride 3 ml 11/14/20 11:18 11/16/20 08:13 0.9 % Sodium Chloride Flush 3 Ml Syringe IVFLUSH 3 ml QSHIFT WILMA Administration Trazodone HCl 100 mg 11/14/20 21:00 11/15/20 21:45 Trazodone Hcl 100 Mg Tablet PO 100 mg BEDTIME WILMA Administration Valsartan 20 mg 11/16/20 09:00 11/16/20 08:12 Valsartan 40 Mg Tablet PO 20 mg DAILY WILMA Administration Protocol Time Spent With Patient Time: Total time spent is greater than 50% in coordination of care (as documented) at patient's floor/unit and/or counseling patient: Time with patient: 25 - 35 minutes
--- NOTE | 2020-11-16 15:38 | HO.PM.IMPN ---
Subjective Subjective Date of Service: 11/16/20 Interval History: the patient was seen and evaluated this morning Laying in bed, feels comfortable, still have lower limbs edema Denies any fever, chills but reports shortness of breath and edema No reported other overnight events. Systemic review: No fever, chills or weakness No chest pain, palpitation Dyspnea with exertion, no coughing\, edema No abdominal pain, nausea or vomiting No urinary symptoms No any rash or wounds Physical Exam Vital Signs: Vital Signs: Last Vital Signs Temp 97.5 F 11/16/20 11:28 Pulse 77 11/16/20 11:28 Resp 18 11/16/20 11:28 BP 113/66 11/16/20 11:28 Pulse Ox 95 11/16/20 11:28 Body Mass Index 24.8 Constitutional : Alert, oriented, not in distress Neck : Normal inspection, Supple Cardiovascular : RRR, S1 S2, +1 bilateral lower extremity edema Respiratory : Decreased bilateral air entry, no crackles, wheezes or rhonchi Gastrointestinal: soft, lax, Normal bowel sounds, Non tender Skin : Warm/Dry, No rash Neurological : Alert & oriented x2, No focal deficit Objective Data Current Medications Generic Name Dose Route Start Last Admin Trade Name Freq PRN Reason Stop Dose Admin Acetaminophen 650 mg 11/14/20 11:18 Acetaminophen 325 Mg Tablet PO Q6H PRN Pain, Mild (Pain Scale 1-3) Aspirin 81 mg 11/16/20 09:00 11/16/20 08:12 Aspirin Enteric Coated 81 Mg Tablet.Dr PO 81 mg DAILY WILMA Administration Atorvastatin Calcium 80 mg 11/14/20 21:00 11/15/20 21:45 Atorvastatin Calcium 80 Mg Tablet PO 80 mg BEDTIME WILMA Administration Docusate Sodium 100 mg 11/14/20 11:18 Docusate Sodium 100 Mg Capsule PO DAILY PRN Constipation Furosemide 40 mg 11/15/20 18:00 11/16/20 08:11 Furosemide 40 Mg/4 Ml Vial IVPUSH 40 mg BID@0900,1800 WILMA Administration Protocol Melatonin 3 mg 11/14/20 21:00 11/15/20 21:45 Melatonin 3 Mg Tablet PO 3 mg BEDTIME WILMA Administration Metoprolol Succinate 50 mg 11/16/20 09:00 11/16/20 08:13 Metoprolol Succinate Er 50 Mg Tab.Er.24h PO 50 mg DAILY WILMA Administration Protocol Mirtazapine 7.5 mg 11/14/20 21:00 11/15/20 21:44 Mirtazapine 15 Mg Tablet PO 7.5 mg BEDTIME WILMA Administration Multivitamins/Minerals 1 tab 11/14/20 11:18 11/16/20 08:13 Multivitamin With Minerals Tablet PO 1 tab DAILY WILMA Administration Ondansetron HCl 4 mg 11/14/20 11:18 Ondansetron Hcl 4 Mg/2 Ml Vial IVPUSH Q8H PRN Nausea and Vomiting Pharmacy Consult 1 each 11/13/20 20:04 Consult Rx Perform Med Rec MISCELLANE ONCE PRN Consult order Quetiapine Fumarate 25 mg 11/14/20 11:18 11/16/20 08:12 Quetiapine Fumarate 25 Mg Tablet PO 25 mg DAILY WILMA Administration Sertraline HCl 50 mg 11/14/20 11:18 11/16/20 08:13 Sertraline Hcl 50 Mg Tablet PO 50 mg DAILY WILMA Administration Sodium Chloride 3 ml 11/14/20 11:18 11/16/20 08:13 0.9 % Sodium Chloride Flush 3 Ml Syringe IVFLUSH 3 ml QSHIFT WILMA Administration Trazodone HCl 100 mg 11/14/20 21:00 11/15/20 21:45 Trazodone Hcl 100 Mg Tablet PO 100 mg BEDTIME WILMA Administration Valsartan 20 mg 11/16/20 09:00 11/16/20 08:12 Valsartan 40 Mg Tablet PO 20 mg DAILY WILMA Administration Protocol Labs CBC & Chem 7: 11/16/20 05:08 11/16/20 05:08 Assessment and Plan (1) CHF exacerbation: Status: Acute (2) CVA (cerebral vascular accident): Status: Acute (3) Atrial fibrillation: Status: Acute (4) CAD (coronary artery disease): Status: Acute (5) Supratherapeutic INR: Status: Acute (6) Pericardial effusion: Status: Acute Assessment and Plan: This is a an 80-year-old female with past medical history of CHF, AFib on Coumadin, recent CVA who presents to the hospital with complaints of worsening facial droop as well as volume overload. Acute systolic CHF exacerbation Echo showing severe left ventricular dysfunction Continue with IV Lasix Strict intake and output metoprolol to 50 mg daily continue valsartan 20 mg daily Discontinue amiodarone and digoxin continue baby aspirin Cardiology input appreciated, as above Facial droop Stable to mildly worsened CT of the head is negative CT angiogram done at [facility] 3 weeks ago shows internal carotid artery stenosis of 75% Continue atorvastatin 80 mg Start baby aspirin Neurology input appreciated, medical management only carotid artery stenosis Continue statin and an aspirin Medical management only per Neurology supratherapeutic INR Last INR 3.2 continue to hold warfarin Daily INR pericardial effusion on chest x-ray Reported to be minimal on echo Cardiology following, for diuresis AFib Discontinue amiodarone, digoxin, hold warfarin for supratherapeutic INR DVT prophylaxis Coumadin
--- NOTE | 2020-11-16 18:43 | PC.NURSE ---
Patient OOb to chair today. Continues on IV lasix. Vitals stable. No complaints of pain or discomfort. Will continue to monitor.
[2020-11-16 20:02] LABS: B Type Natriuretic Peptide 1847 pg/mL (<100)
[2020-11-16] MEDS: Atorvastatin Calcium 80 MG TABLET PO (20:40)
[2020-11-16] MEDS: traZODone HCL 100 MG TABLET PO (20:40)
[2020-11-16] MEDS: Melatonin 3 MG TABLET PO (20:40)
[2020-11-16] MEDS: Mirtazapine 15 MG TABLET 7.5 MG PO (20:40)
[2020-11-16] MEDS: Furosemide 100 MG/10 ML VIAL 60 MG IVPUSH (22:24)
--- NOTE | 2020-11-16 22:34 | PC.NURSE ---
1900 [id number] I- NOTIFIED.ORDERED 60MG IV LASIX X1 DOSE NOW.
[2020-11-17 04:28] VITALS: BP 142/72; PULSE 69; RESP 14; TEMP 36.1; O2SAT 93
[2020-11-17 07:07] LABS: INTERNATIONAL NORM RATIO 4.5 (0.9-1.1); Prothrombin Time 53.9 SEC (10.8-13.0)
[2020-11-17 07:28] VITALS: BP 140/75; PULSE 66; RESP 16; TEMP 36.3; O2SAT 95
[2020-11-17 07:29] LABS: Anion Gap 16 (12-20); Blood Urea Nitrogen 20 mg/dL (9-16); Calcium 8.2 mg/dL (8.4-10.2); Carbon Dioxide 24 mmol/L (22-29); Chloride 104 mmol/L (96-108); Creatinine Clr Calc Pharmacy 39.4; Estimated Glomerular Filt Rate 54; Glucose Random 98 mg/dL (60-115); Potassium 3.5 mmol/l (3.3-5.1); Sodium 140 mmol/L (135-145)
[2020-11-17 08:03] LABS: Glucose, Whole Blood 105 mg/dL (60-115)
[2020-11-17 08:59] VITALS: BP 140/75; PULSE 66
[2020-11-17] MEDS: Metoprolol Succinate ER 50 MG TAB.ER.24H PO (08:59)
[2020-11-17] MEDS: Valsartan 40 MG TABLET 20 MG PO (08:59)
[2020-11-17] MEDS: Aspirin Enteric Coated 81 MG TABLET.DR PO (08:59)
[2020-11-17] MEDS: Sertraline HCL 50 MG TABLET PO (09:00)
[2020-11-17] MEDS: QUEtiapine Fumarate 25 MG TABLET PO (09:00)
[2020-11-17] MEDS: metOLazone 2.5 MG TABLET PO (09:00)
[2020-11-17] MEDS: 0.9 % Sodium Chloride Flush 3 ML SYRINGE IVFLUSH (09:03)
[2020-11-17] MEDS: Furosemide 40 MG/4 ML VIAL IVPUSH (09:03)
--- NOTE | 2020-11-17 11:13 | MHC.CM.PN ---
Pt will DC home today with resumption of [facility]. [facility] notified of DC via [employer].
[2020-11-17 11:41] LABS: Glucose, Whole Blood 119 mg/dL (60-115)
[2020-11-17 12:13] VITALS: BP 110/60; PULSE 67; RESP 20; TEMP 36.3; O2SAT 98
--- NOTE | 2020-11-17 16:41 | P.DS_ITS ---
DS: Providers Provider Date of admission: 11/14/20 09:49 Primary care physician: Garry Rinaldi MD Consults: 11/14/20 08:12 Consult to Neurology Routine Consulting Provider: [facility] Reason for consultation: TIA Has provider been notified: No 11/15/20 07:46 Consult to Cardiology Routine Consulting Provider: Thomas Evans Reason for consultation: Acute CHF exacerbation, pericardial effusion for your kind eval DS: Diagnosis Discharge Diagnosis (1) CHF exacerbation: Status: Acute (2) CVA (cerebral vascular accident): Status: Acute (3) Atrial fibrillation: Status: Acute (4) CAD (coronary artery disease): Status: Acute (5) Supratherapeutic INR: Status: Acute (6) Pericardial effusion: Status: Acute DS: Medications Discharge Medications Home Medications: Home Medications Medication Instructions Recorded Confirmed Centrum Silver Women 1 tab PO DAILY 11/13/20 11/13/20 melatonin 3 mg PO BEDTIME 11/13/20 11/13/20 metoprolol succinate 25 mg PO DAILY 11/13/20 11/13/20 mirtazapine 7.5 mg PO BEDTIME 11/13/20 11/13/20 quetiapine 25 mg PO DAILY 11/13/20 11/13/20 sertraline 50 mg PO DAILY 11/13/20 11/13/20 trazodone 100 mg PO BEDTIME 11/13/20 11/13/20 warfarin 1 mg PO MOTUWETHFRSA@1800 11/13/20 11/13/20 warfarin 2 mg PO HAGER@1800 11/13/20 11/13/20 Previous Rx's Medication Instructions Recorded aspirin 81 mg PO DAILY #30 tab 11/17/20 atorvastatin 80 mg PO BEDTIME #30 tab 11/17/20 furosemide 40 mg PO BID #60 tab 11/17/20 valsartan 20 mg PO DAILY #30 tab 11/17/20 DS: Summary Hospital Course Hospital Course: Admission note HPI This is an 80-year-old female with past medical history of CHF with reduced ejection fraction, AFib, CAD status post stents, renal artery stenosis, who lives initiated living situation with her filter press tender who is present at bedside presents to the hospital complaining of worsening facial droop. History is obtained mostly from her caregiver at bedside who is her proxy as patient is confused, she is alert and oriented to self and place but not to time and is not sure what happened that brought him to hospital. According to the filter press tender patient was seen at [facility] about 3 and half weeks ago because of right-sided facial droop. 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 Medical records obtained from [facility] show that patient underwent CT of the head, CT angiogram, and was found to have occlusion as above. With no acute stroke. Her filter press tender reports that even after discharge she continued to have right- sided facial droop. Her filter press tender reports that since discharge patient has been gaining about 30 lb, having lower extremity edema, and becoming more dyspneic on minimal exertion. She also noted that she give her furosemide this morning with very minimal urine production all day which is abnormal for her. Patient also was noted to have a worsening right-sided facial droop around 4:00 p.m. by the filter press tender and her daughter and therefore EMS was called. Patient is on 20 mg of Lasix daily and according to the filter press tender has been compliant. Patient has not been complaining of any chest pain, has been sleeping in a hospital bed that is almost required to 45? chronically, but has not had any PND. She has not had any fever or chills which the filter press tender checks twice day. She has not had any urinary symptoms, no diarrhea or constipation. No nausea or vomiting. No urinary symptoms. On arrival to the ED patient hemodynamically stable with no significant abnormal vitals Labs are significant for, hemoglobin of 10.7, PT of 63, INR 5.2, PTT of 44, sodium of 139, potassium 4.8, high sensitivity troponin of 37.6 Negative UA, EKG showing AFib with nonspecific ST T wave abnormality Chest x-ray shows Pericardial effusion as well as bilateral pleural effusion Hospital course This is a an 80-year-old female with past medical history of CHF, AFib on Coumadin, recent CVA who presents to the hospital with complaints of worsening facial droop as well as volume overload. Acute systolic CHF exacerbation Echo showing severe left ventricular dysfunction with increased right-sided pressures and mild aortic stenosis Evaluated by Cardiology and treated with IV Lasix with fair response Continued on metoprolol to 50 mg daily Started on valsartan 20 mg daily and baby aspirin To be discharged on higher dose of 40 mg b.i.d. of Lasix To follow up with Cardiology as outpatient Facial droop Reported at time of presentation which seems to be acute on a chronic facial droop. Noticed to be Stable to mildly worsened CT of the head is negative Increased atorvastatin 80 mg Start baby aspirin Neurology input appreciated, medical management only carotid artery stenosis CT angiogram done at [facility] 3 weeks ago shows internal carotid artery stenosis of 75% Continue statin and an aspirin Medical management only per Neurology supratherapeutic INR Last INR 4.5 continue to hold warfarin at time of discharge and to restart warfarin when INR back to between 2-3 pericardial effusion on chest x-ray Reported to be minimal on echo Cardiology following, for diuresis only no need for interventions AFib Cardiology decided to Discontinue amiodarone, digoxin, Time Spent with Patient Time attestation: Total time spent providing and/or coordinating discharge services: Quality: Stroke Pt Provided Written Stroke Discharge Instructions: Patient given written information Physical Exam Vital Signs: Vital Signs: Last Vital Signs Temp 97.4 F 11/17/20 12:13 Pulse 67 11/17/20 12:13 Resp 20 11/17/20 12:13 BP 110/60 11/17/20 12:13 Pulse Ox 98 11/17/20 12:13 Body Mass Index 24.8 Constitutional : Alert, oriented, not in distress Neck : Normal inspection, Supple Cardiovascular : RRR, S1 S2, +1 bilateral lower extremity edema Respiratory : Decreased bilateral air entry, no crackles, wheezes or rhonchi Gastrointestinal: soft, lax, Normal bowel sounds, Non tender Skin : Warm/Dry, No rash Neurological : Alert & oriented x2, No focal deficit DS: Data Data Completed and Pending Labs on day of discharge: 11/13/20 17:17 ECG 12 lead EKG Stat Continuous Cardiac Monitoring NOW EKG Documentation DIRECTED Glucose, blood poc NOW CT head for stroke Stat 11/13/20 17:32 Stroke INR NOW 11/13/20 17:49 XR chest 1V Stat 11/13/20 17:55 Add Laboratory Test Stat 11/13/20 19:20 Glucose, Whole Blood Routine 11/13/20 19:31 B Type Natriuretic Peptide Stat Basic Metabolic Panel Stat Complete Blood Count Auto Diff Stat Creatine Kinase Total Stat Partial Thromboplastin Time Stat Prothrombin Time INR Stat SLIDE REVIEW Stat Stroke Lab Use Stat Troponin-I High Sensitivity Stat 11/13/20 20:04 Consult Rx Perform Med Rec 1 each MISCELLANE ONCE PRN 11/13/20 20:23 Furosemide [Lasix] 40 mg IVPUSH STAT STA 11/13/20 21:35 Transfer Order Routine 11/13/20 21:54 Code Status Routine 11/14/20 00:32 COVID-19 ID NOW ([place]) Stat 11/14/20 03:28 UA CC w/rflx Micro + Cult Stat 11/14/20 05:43 Troponin-I High Sensitivity Stat 11/14/20 08:12 CA echo transthoracic complete Routine Ambulate QSHIFT WHILE AWAKE Compression Therapy QSHIFT Cont. Telemetry w/Vital Sign limit Q4HR Intake and Output Q8HR 11/14/20 09:00 Atorvastatin Calcium [Lipitor] 80 mg PO DAILY 11/14/20 09:10 Basic Metabolic Panel Routine Complete Blood Count Auto Diff Routine SLIDE REVIEW Routine 11/14/20 Breakfast Low Sodium Diet 11/14/20 11:18 0.9 % Sodium Chloride Flush [NS Flush] 3 ml IVFLUSH QSHIFT Acetaminophen [Tylenol] 650 mg PO Q6H PRN Digoxin [Lanoxin] 0.0625 mg PO TUTHSA@0900 Docusate Sodium [Colace] 100 mg PO DAILY PRN Furosemide [Lasix] 40 mg IVPUSH BID@0900,1800 Metoprolol Succinate ER [Toprol XL] 25 mg PO DAILY Multivitamin with Minerals [Theragran-M] 1 tab PO DAILY QUEtiapine Fumarate [SEROquel] 25 mg PO DAILY Sertraline HCL [Zoloft] 50 mg PO DAILY amiodarone 50 mg PO DAILY ondansetron HCL [Zofran] 4 mg IVPUSH Q8H PRN 11/14/20 11:18 IV insert/maintain Q4HR Pulse Oximetry Q4HR Vital Signs Q4HR Weight DAILY@0600 11/14/20 13:28 Physical Therapy Eval & Treat NEEDED 11/14/20 21:00 Atorvastatin Calcium [Lipitor] 40 mg PO BEDTIME Atorvastatin Calcium [Lipitor] 80 mg PO BEDTIME Melatonin 3 mg PO BEDTIME Mirtazapine [Remeron] 7.5 mg PO BEDTIME traZODone HCL [Desyrel] 100 mg PO BEDTIME 12/25/20 05:43 Basic Metabolic Panel DAILY@0600 Complete Blood Count no Diff DAILY@0600 Lipid Panel Routine Prothrombin Time INR DAILY@0600 11/15/20 09:00 Amiodarone HCL [Cordarone] 50 mg PO DAILY Furosemide [Lasix] 40 mg IVPUSH DAILY 11/15/20 14:00 Valsartan [Diovan] 40 mg PO DAILY 11/15/20 18:00 Furosemide [Lasix] 40 mg IVPUSH BID@0900,1800 11/16/20 05:08 B Type Natriuretic Peptide Routine Basic Metabolic Panel DAILY@0600 Complete Blood Count no Diff DAILY@0600 11/16/20 09:00 Aspirin Enteric Coated [Ecotrin] 81 mg PO DAILY Metoprolol Succinate ER [Toprol XL] 50 mg PO DAILY Valsartan [Diovan] 20 mg PO DAILY 11/16/20 19:16 B Type Natriuretic Peptide Routine 11/16/20 22:03 Furosemide [Lasix] 60 mg IVPUSH ONCE ONE 11/17/20 05:25 Basic Metabolic Panel DAILY@0600 Prothrombin Time INR DAILY@0600 11/17/20 07:52 Glucose, Whole Blood Routine 11/17/20 08:18 metOLazone [Zaroxolyn] 2.5 mg PO ONCE ONE 11/17/20 11:31 Glucose, Whole Blood Routine Laboratory Last Values WBC 6.3 X10*3/uL (4.8-10.8) 11/16/20 05:08 RBC 4.10 X10*6/uL (4.20-5.50) L 11/16/20 05:08 Hgb 11.1 g/dl (12.0-16.0) L 11/16/20 05:08 Hct 36.2 % (37-47) L 11/16/20 05:08 MCV 88.3 fL (80-98) 11/16/20 05:08 MCH 27.1 pg (27.0-33.0) 11/16/20 05:08 MCHC 30.7 g/dl (31.0-35.0) L 11/16/20 05:08 RDW 17.7 % (11.0-16.0) H 11/16/20 05:08 Plt Count 217 X10*3/uL (160-400) 11/16/20 05:08 MPV 11.6 fL (9.4-12.3) 11/16/20 05:08 Immature Gran % (Auto) 0.3 % (0.0-0.4) 11/14/20 09:10 Neut % (Auto) 85.4 % (45-73) H 11/14/20 09:10 Lymph % (Auto) 5.8 % (20-40) L 11/14/20 09:10 [place] % (Auto) 7.5 % (2-11) 11/14/20 09:10 Eos % (Auto) 0.1 % (0-4) 11/14/20 09:10 Baso % (Auto) 0.9 % (0-2) 11/14/20 09:10 Lymph # (Auto) 0.5 X10*3/uL (1.2-4.9) L 11/14/20 09:10 [place] # (Auto) 0.6 X10*3/uL (0.1-1.2) 11/14/20 09:10 Eos # (Auto) 0.0 X10*3/uL (0.0-0.4) 11/14/20 09:10 Baso # (Auto) 0.1 X10*3/uL (0.0-0.2) 11/14/20 09:10 Abs Immat Gran (auto) 0.02 X10*3/uL (0.00-0.03) 11/14/20 09:10 Absolute Neuts (auto) 6.8 X10*3/uL (2.0-8.3) 11/14/20 09:10 Absolute Nucleated RBC 0.000 X10*3/uL (0.0-0.012) 11/16/20 05:08 Nucleated RBC % (auto) 0.0 /100WBC (0.0-0.2) 11/16/20 05:08 Smear Tech's Comments VERIFIED 11/14/20 09:10 PT 53.9 SEC (10.8-13.0) H D 11/17/20 05:25 INR 4.5 (0.9-1.1) H 11/17/20 05:25 APTT 44.0 SEC (24.1-38.0) H 11/13/20 19:31 Sodium 140 mmol/L (135-145) 11/17/20 05:25 Potassium 3.5 mmol/l (3.3-5.1) 11/17/20 05:25 Chloride 104 mmol/L (96-108) 11/17/20 05:25 Carbon Dioxide 24 mmol/L (22-29) 11/17/20 05:25 Anion Gap 16 (12-20) 11/17/20 05:25 BUN 20 mg/dL (9-16) H 11/17/20 05:25 Creatinine 0.99 mg/dL (0.5-1.4) 11/17/20 05:25 Estim Creat Clear Calc 39.4 11/17/20 05:25 Estimated GFR 54 11/17/20 05:25 POC Glucose 119 mg/dL (60-115) H 11/17/20 11:31 Random Glucose 98 mg/dL (60-115) 11/17/20 05:25 Calcium 8.2 mg/dL (8.4-10.2) L 11/17/20 05:25 Total Creatine Kinase 55 U/L (26-140) 11/13/20 19:31 Troponin I High Sens 46.8 ng/L (<3.5-17.0) H 11/14/20 05:43 B-Natriuretic Peptide 1847 pg/mL (<100) H 11/16/20 19:16 Triglycerides 54 mg/dL 11/15/20 05:43 Cholesterol 88 mg/dL 11/15/20 05:43 LDL Cholesterol, Calc 43 mg/dl 11/15/20 05:43 HDL Cholesterol 35 mg/dL 11/15/20 05:43 Urine Color STRAW 11/14/20 03:28 Urine Appearance CLEAR 11/14/20 03:28 Urine pH 5.5 (5.0-8.0) 11/14/20 03:28 Ur Specific [place] 1.015 (1.005-1.025) 11/14/20 03:28 Urine Protein NEG MG/DL (NEG-TRACE) 11/14/20 03:28 Urine Glucose (UA) NEG MG/DL (NEG) 11/14/20 03:28 Urine Ketones NEG MG/DL (NEG) 11/14/20 03:28 Urine Blood NEG (NEG) 11/14/20 03:28 Urine Nitrite NEG (NEG) 11/14/20 03:28 Ur Leukocyte Esterase NEG (NEG) 11/14/20 03:28 COVID-19 (SHILA) Negative (Negative) 11/14/20 00:32 COVID-19 Clin Com See Note 11/14/20 00:32 Discharge Plan Discharge Patient Disposition: Home Health Service Referrals: [facility] [Outside] Garry Rinaldi MD [Primary Care Provider] - Discharge Medications: New atorvastatin 80 mg Tablet 80 mg PO BEDTIME Qty: 30 RF: 0 aspirin 81 mg Tablet,Delayed Release (Dr/Ec) 81 mg PO DAILY Qty: 30 RF: 0 valsartan 40 mg Tablet 20 mg PO DAILY Qty: 30 RF: 0 furosemide 40 mg tablet 40 mg PO BID Qty: 60 RF: 1 Continued quetiapine 25 mg Tablet 25 mg PO DAILY RF: 0 melatonin 3 mg Tablet 3 mg PO BEDTIME RF: 0 trazodone 100 mg Tablet 100 mg PO BEDTIME RF: 0 mirtazapine 15 mg Tablet 7.5 mg PO BEDTIME RF: 0 metoprolol succinate 25 mg Tablet Extended Release 24 Hr 25 mg PO DAILY RF: 0 sertraline 50 mg Tablet 50 mg PO DAILY RF: 0 Centrum Silver Women 8 mg iron-400 mcg-300 mcg Tablet 1 tab PO DAILY RF: 0 Held warfarin 1 mg Tablet 1 mg PO MOTUWETHFRSA@1800 RF: 0 Hold Instructions: Resume on 11/20/20. warfarin 1 mg Tablet 2 mg PO HAGER@1800 RF: 0 Hold Instructions: Resume on 11/20/20. Discontinued atorvastatin 40 mg Tablet 40 mg PO BEDTIME RF: 0 digoxin 125 mcg (0.125 mg) Tablet 62.5 mcg PO TUTHSA@0900 RF: 0 furosemide 20 mg Tablet 20 mg PO DAILY RF: 0 amiodarone 100 mg Tablet 50 mg PO DAILY RF: 0 Discharge Orders: Discharge Order (Routine); Ordered 11/17/20 Ordered By: Alvaro Cruz Diet: advance to usual diet and low salt diet Activity on Discharge: As tolerated Discharge Date/Time: 11/17/20 13:54 Visit Report Forms: Patient Portal Discharge page Care Plan Goals: Read below Health Concerns: Read below Plan of Treatment: You were admitted to the hospital for evaluation of facial droop. Images including CT scan and CTA did not show any acute findings. You were evaluated by neurologist and started on baby aspirin with higher dose of atorvastatin. Your INR was noticed to be elevated and your warfarin was held. Continue to hold your warfarin until 11/20 before restarting your home dose to check INR level. An echo was done showing significant decreased heart function. You were treated for fluid overload with IV Lasix with good response over the course of treatment. You were evaluated by Cardiology who will continue to follow as outpatient. Start aspirin and higher dose atorvastatin Digoxin, amiodarone were discontinued. Started on a new medication called valsartan Increase your water pill does of Lasix to 40 mg twice daily Hold warfarin until INR is between 2-3. Monitor your weight at home and report any changes to your PCP or shellacker
[2020-11-18 08:28] LABS: Glucose, Whole Blood 115 mg/dL (60-115)
[2020-11-18 08:29] LABS: Prothrombin Time Whole Bld POC 70.4 sec (11.1-13.5); ~PT, ~INR - Anti Coag Clinic 5.9 (0.9-1.1)
== END 2020-11-17 13:54 | disposition home health service (06) | DRG 293 ==
LOC: HO.ED 20:23 → HO.IMC 11-14 09:50
PROVIDERS: Admitting Provider Internal Medicine; Emergency Provider Emergency Medicine; PCP Internal Medicine; Visit Provider Student in an Organized Health Care Education/Training Program
DX: I50.23 Acute on chronic systolic (congestive) heart failure (principal); I25.10 Atherosclerotic heart disease of native coronary artery without angina pectoris; R29.701 NIHSS score 1; R29.810 Facial weakness; I65.29 Occlusion and stenosis of unspecified carotid artery; F03.90 Unspecified dementia, unspecified severity, without behavioral disturbance, psychotic disturbance, mood disturbance, and anxiety; R79.1 Abnormal coagulation profile; Z86.73 Personal history of transient ischemic attack (TIA), and cerebral infarction without residual deficits; Z20.828 Contact with and (suspected) exposure to other viral communicable diseases; Z79.01 Long term (current) use of anticoagulants; Z79.82 Long term (current) use of aspirin; Z79.899 Other long term (current) drug therapy
CPT/HCPCS: 36415; 70450; 71045; 80048; 80061; 81003; 82550; 82947; 83880; 84484; 85025; 85027; 85610; 85730; 87635; 93005; 93306; 96374; 97161; 99285; J1940

== ENCOUNTER 2021-01-04 10:03 | Emergency (ER) | payer MEDICARE, MEDICAID, SELFPAY ==
--- NOTE | ~2021-01-04 | XR_ITS ---
EXAMINATION: XR ABDOMEN KUB CLINICAL INDICATION: Evaluate stool burden. COMPARISON: None TECHNIQUE: AP view of the abdomen. FINDINGS: The bowel gas pattern is normal with no evidence of ileus or obstruction. A normal amount of stool is present within the ascending colon, with a small rectal stool ball. Vascular calcifications. XR/XR KUB IMPRESSION: Small rectal stool ball. Normal amount of stool present within the ascending colon. No evidence of obstruction.
[2021-01-04 10:14] VITALS: BP 105/70; BP 109/62; PULSE 117; PULSE 130; RESP 18; TEMP 36.5; O2SAT 95; O2SAT 98; BMI 24.3
[2021-01-04] MEDS: Sodium Phosphate,Mono-Dibasic 133 ML ENEMA PR (10:41)
--- NOTE | 2021-01-04 10:49 | ED.ABDPAIN ---
HPI - Abdominal Pain General Chief Complaint: Abdominal Pain Stated Complaint: CONSTIPATION W/ABD PAIN Time Seen by Provider: 01/04/21 10:28 Source: patient, family (critical care educator) and EMS Mode of arrival: EMS Limitations: altered mental status (confused at baseline) History of Present Illness HPI narrative: 80-year-old female with a past medical history of dementia, AFib on Coumadin, CHF, CAD status post cardiac stents, renal artery stenosis, TIA here with complaints of constipation and abdominal pain. Per the healthcare provider who takes care of the patient she tells me that the patient did have a small bowel movement yesterday however this morning has been straining to move her bowels in complaining of a lot of rectal discomfort and pressure and lower abdominal cramping. She did give her a dose of stool softener this morning. She denies vomiting, urinary symptoms, fevers, chills. She tells me the patient is confused but this is her baseline MD elicited complaint: abdominal pain Related Data Home Medications Medication Instructions Recorded Confirmed Centrum Silver Women 1 tab PO DAILY 11/13/20 11/13/20 melatonin 3 mg PO BEDTIME 11/13/20 11/13/20 metoprolol succinate 25 mg PO DAILY 11/13/20 11/13/20 mirtazapine 7.5 mg PO BEDTIME 11/13/20 11/13/20 quetiapine 25 mg PO DAILY 11/13/20 11/13/20 sertraline 50 mg PO DAILY 11/13/20 11/13/20 trazodone 100 mg PO BEDTIME 11/13/20 11/13/20 warfarin 1 mg PO MOTUWETHFRSA@1800 11/13/20 11/13/20 warfarin 2 mg PO HAGER@1800 11/13/20 11/13/20 Previous Rx's Medication Instructions Recorded aspirin 81 mg PO DAILY #30 tab 11/17/20 atorvastatin 80 mg PO BEDTIME #30 tab 11/17/20 furosemide 40 mg PO BID #60 tab 11/17/20 valsartan 20 mg PO DAILY #30 tab 11/17/20 docusate sodium [Colace] 100 mg PO BID #30 cap 01/04/21 Allergies Allergy/AdvReac Type Severity Reaction Status Date / Time No Known Allergies Allergy Unverified 08/08/20 17:07 [No Known Allergies*] Review of Systems Review of Systems Limited d/t mental status, able to answer simple questions ROS also provided by staff Constitutional: Reports no additional constitutional complaints, Denies body ache(s), Denies chills, Denies fever(s), Denies headache(s) and Denies weakness Eyes: Reports no additional eye complaints and Denies change in vision Reports system reviewed and no additional complaints, except as documented, Denies dizziness, Denies headache(s), Denies nasal congestion, Denies nasal discharge and Denies neck pain Cardiovascular: Reports no additional cardiovascular complaints, Denies chest pain, Denies leg edema and Denies dyspnea Respiratory: Reports no additional respiratory complaints, Denies cough and Denies dyspnea Gastrointestinal: Reports no additional gastrointestinal complaints, Reports abdominal pain, Reports constipation, Denies diarrhea, Denies nausea and Denies vomiting Genitourinary: Reports no additional female genitourinary complaints and Denies urinary incontinence Musculoskeletal: Reports no additional musculoskeletal complaints, Denies back pain, Denies arthralgias, Denies joint swelling, Denies neck pain, Denies numbness and Denies tingling Skin/Breast: Reports system reviewed and no additional complaints, except as docu and Denies rash Reports system reviewed and no additional complaints, except as documented, Denies Abnormal speech present, Denies dizziness, Denies headache(s), Denies numbness, Denies tingling and Denies weakness Physical Exam Vital Signs: Vital Signs: Last Vital Signs Temp 97.7 F 01/04/21 10:14 Pulse 97 01/04/21 12:05 Resp 18 01/04/21 12:05 BP 115/59 L 01/04/21 12:05 Pulse Ox 93 01/04/21 12:05 Body Mass Index 24.3 Const: General: cooperative, healthy appearing, comfortable and no acute distress Orientation/consciousness: patient oriented x3 Limitations: no limitations HENMT: Head: Yes normal to inspection Ears: hearing grossly normal bilaterally General nose exam: Normal external nose present Face and sinus: Yes normal facial exam Mouth: Normal oral and palatal mucosa present Throat: Yes posterior oropharynx normal Eyes: General: appearance normal, both eyes and all related structures Pupils: Equal, round and reactive pupils present Neck: Neck: Yes normal visual inspection Chest: Chest palpation & inspection: normal inspection of the chest Resp: Effort & Inspection: normal respiratory effort Auscultation: clear to auscultation bilaterally Cardio: Rate: regular rate Rhythm: regular rhythm Peripheral pulses: Peripheral pulses 2+ throughout GI: Other: Mild diffuse tenderness. No focal tenderness christine RN manager environmental health and safety Inspection: Yes normal to inspection Palpation (GI): Soft to palpation and nontender Auscultation: normal bowel sounds Rectal Exam - Female: visual inspection normal and Abnormal stool present (Fecal impaction present-brown stool) Back/Spine/Pelvis: Thoracic/Lumbar Spine: thoracic and lumbar spine normal to inspection Skin: General skin exam: no rashes or lesions noted Neuro: General: patient oriented x3, no focal motor deficits and normal sensation to monofilament Cranial nerves: Yes Equal, round and reactive pupils present Cognition (Neuro): normal cognition Speech: No Abnormal speech present Gait exam (Neuro): Normal gait present Motor exam (neuro): 5/5 motor strength present throughout Extrem: General: Yes normal to inspection Procedures Procedure Narrative Procedure Narrative: Fecal disimpaction done at the bedside with a large amount of stools, patient tolerated well Course Course Course Narrative: 80-year-old female here with complaints of mild generalized abdominal cramping and constipation with urgency to move her bowels but she cannot. She did have bowel movement yesterday. Received a stool softener this morning On arrival well appearing, no focal abdominal pain on exam. Rectal exam shows a fecal impaction. Patient had a manual disimpaction at the bedside, given Fleet enema after this and moved her bowels. Will check KUB to eval stool burden. 1255-IMPRESSION: Small rectal stool ball. Normal amount of stool present within the ascending colon. No evidence of obstruction. Repeat disimpaction done with large amounts of stools and complete improvement in symptoms. Repeat abdominal exam benign with no reports of pain Discharged with caregiver. Reviewed worrisome signs and symptoms and when to return to the emergency department. Comfortable discharge home. MDM - Abdominal Pain Medical Records Attestation: I reviewed the patient's medical records. Lab Data Attestation: I reviewed the patient's lab results. Imaging Data kub : Attestation: I personally reviewed and interpreted this imaging study as follows: Radiologist's impression: [address] [id number] ReportSigned Patient: Brandt EnglenaMR#: [id number]: 11/26/1952cct:[id number]/Sex: 68 / FADM Date: 01/04/21Loc: HO.EDAttending Dr: Ordering Physician: KAY EATON NP Date of Service: 01/04/21 Procedure(s): XR hand RT min 3V Accession Number(s): [id number] cc: KAY EATON NP~ EXAMINATION: XR HAND, RIGHT CLINICAL INFORMATION: Evaluate for foreign body, dog bite COMPARISON: None TECHNIQUE: PA, lateral, and oblique views of the right hand. FINDINGS: There is no acute visible fracture or dislocation. Degenerative changes of the third and fourth distal interphalangeal joints are noted. Degenerative changes at the base of the fifth metacarpal at its ulnar aspect. Joint spaces and alignment are otherwise maintained. Soft tissues are unremarkable with no radiopaque foreign body visualized. XR/XR hand RT min 3V IMPRESSION: 1. No acute visible fracture or dislocation. 2. Degenerative changes involving the third and fourth distal interphalangeal joints and base of the fifth metacarpal. 3. No radiopaque foreign body visualized. Discharge Plan Discharge Clinical Impression: Fecal impaction Patient Disposition: Home, Self-Care Instructions: Fecal Impaction (ED) Prescriptions: New docusate sodium [Colace] 100 mg capsule 100 mg PO BID Qty: 30 RF: 0 No Action quetiapine 25 mg Tablet 25 mg PO DAILY RF: 0 melatonin 3 mg Tablet 3 mg PO BEDTIME RF: 0 trazodone 100 mg Tablet 100 mg PO BEDTIME RF: 0 mirtazapine 15 mg Tablet 7.5 mg PO BEDTIME RF: 0 metoprolol succinate 25 mg Tablet Extended Release 24 Hr 25 mg PO DAILY RF: 0 warfarin 1 mg Tablet 1 mg PO MOTUWETHFRSA@1800 RF: 0 Hold Instructions: Resume on 11/20/20. warfarin 1 mg Tablet 2 mg PO HAGER@1800 RF: 0 Hold Instructions: Resume on 11/20/20. sertraline 50 mg Tablet 50 mg PO DAILY RF: 0 Centrum Silver Women 8 mg iron-400 mcg-300 mcg Tablet 1 tab PO DAILY RF: 0 atorvastatin 80 mg Tablet 80 mg PO BEDTIME Qty: 30 RF: 0 aspirin 81 mg Tablet,Delayed Release (Dr/Ec) 81 mg PO DAILY Qty: 30 RF: 0 valsartan 40 mg Tablet 20 mg PO DAILY Qty: 30 RF: 0 furosemide 40 mg tablet 40 mg PO BID Qty: 60 RF: 1 Referrals: Garry Rinaldi MD [Primary Care Provider] - 2 days Interventions: ED Discharge Assessment Last Done: 01/04/21 12:48 Discharge Date/Time: 01/04/21 12:49 [facility] Past Medical History Attestation statement: The following information was validated with the patient. Source: old records reviewed and nursing notes reviewed Medical History Atrial fibrillation CAD (coronary artery disease) Congestive heart failure CVA (cerebral vascular accident) Pericardial effusion TIA (transient ischemic attack) Social History Social History Household Members: Caregiver Housing: House Alcohol intake: never Smoking Status: Former smoker Use of substances other than those prescribed or required for medical reasons: No Advance Directives: No Advance Directives Information Provided: No service: No Current occupational status: retired
--- NOTE | 2021-01-04 11:02 | PC.NURSE ---
santa, equine manager at bedside for disinpaction, santa got a medium amount of formed stool out, also did a fleet enema
[2021-01-04 12:05] VITALS: BP 115/59; PULSE 97; RESP 18; O2SAT 93
--- NOTE | 2021-01-04 12:06 | PC.NURSE ---
pt had two very small ball size of stool since the enema, will complain of pain here and there, but mostly resting gin the bed comfortably, a-fib on the monitor anywhere from 90-115
== END 2021-01-04 12:49 | disposition home or self-care (01) ==
PROVIDERS: Emergency Provider Emergency Medicine Emergency Medical Services; PCP Internal Medicine
DX: K56.41 Fecal impaction (principal); I48.91 Unspecified atrial fibrillation; Z86.73 Personal history of transient ischemic attack (TIA), and cerebral infarction without residual deficits; Z79.01 Long term (current) use of anticoagulants
CPT/HCPCS: 74018; 99284